=== PATIENT | female | born 1970 | race Caucasian/White ===

== ENCOUNTER → 2017-10-01 | Outpatient (CLI) | payer SELFPAY ==
[~2017-10-01] MED LIST: ADAL40PE; ADAL40PE PO; ADAL40PE SQ; AZAT50TA; AZAT50TA PO; DIAZ10TA3; DIAZ10TA3 PO; ERGO50006; ERGO50006 PO; HYOS-6; HYOS-6 PO; LEVO500T2 PO; LIDO15SO2; LIDO15SO2 MM; METH10TA2; METH10TA2 PO; OXYC-201 PO; OXYC5SOL19; OXYC5SOL19 PO; PANT40TA3; PANT40TA3 PO; PROM25TA14; PROM25TA14 PO; SODI20VI2 IV; [UNRECOGNIZED DRUG - CODE] IV; flexeril PO
[2017-10-01 15:10] LABS: BASOPHILS % (AUTO) 1 % (0-10); EOSINOPHILS # (AUTO) 0.4 10^3/uL (0.0-0.3); EOSINOPHILS % (AUTO) 6 % (0-10); HEMATOCRIT 41 % (35-52); HEMOGLOBIN 13.4 G/DL (11.5-16.0); LYMPHOCYTES # (AUTO) 1.6 X 10^3 (1.0-4.0); LYMPHOCYTES % (AUTO) 23 % (12-44); MEAN CORPUSCULAR HEMOGLOBIN 29 PG (25-34); MEAN CORPUSCULAR HGB CONC 32 G/DL (32-36); MEAN CORPUSCULAR VOLUME 89 FL (80-99); MEAN PLATELET VOLUME 11.1 FL (7.4-10.4); MONOCYTES # (AUTO) 0.7 X 10^3 (0.0-1.0); MONOCYTES % (AUTO) 10 % (0-12); NEUTROPHILS # (AUTO) 4.2 X 10^3 (1.8-7.8); NEUTROPHILS % (AUTO) 60 % (42-75); PLATELET COUNT 207 10^3/uL (130-400); RED BLOOD COUNT 4.63 10^6/uL (4.35-5.85); RED CELL DISTRIBUTION WIDTH 13.6 % (10.0-14.5)
[2017-10-01 15:30] LABS: ALANINE AMINOTRANSFERASE 10 U/L (0-55); ALBUMIN 4.4 GM/DL (3.2-4.5); ALKALINE PHOSPHATASE 78 U/L (40-136); BILIRUBIN,TOTAL 0.4 MG/DL (0.1-1.0); BUN/CREATININE RATIO 16; CALCIUM 9.1 MG/DL (8.5-10.1); CARBON DIOXIDE 24 MMOL/L (21-32); CHLORIDE 103 MMOL/L (98-107); CREATININE SERUM 0.92 MG/DL (0.60-1.30); GFR ESTIMATED > 60; GLUCOSE 95 MG/DL (70-105); POTASSIUM 4.1 MMOL/L (3.6-5.0); SODIUM 137 MMOL/L (135-145); TOTAL PROTEIN 7.4 GM/DL (6.4-8.2)
== END ==
LOC: LAB 14:45
DX: R53.83 Other fatigue (principal); R53.81 Other malaise
CPT/HCPCS: 36415; 80053; 84443; 85025

== ENCOUNTER 2018-04-18 12:19 | Emergency (ER) | payer SELFPAY ==
[~2018-04-18] VITALS: Ht 160 cm; Wt 43.1 kg
[~2018-04-18 12:19] MED LIST changes: -OXYC-201 PO; +OXYC1TAB16 PO
--- OUTSIDE RECORDS SUMMARY | 2018-04-18 12:24 | XMS REPORT | Clinical Summary ---
Author Author [facility] Organization [facility] Address Unknown Phone Unavailable Care Team Providers Care Compensation And Benefits Administrator Name Role Phone Eliana Cornell MD Unavailable Sergio Gaxiola MD PCP Moon Arellano MD Unavailable Deborah Oro RN Unavailable Unavailable eBnito Amato MD Unavailable Shari Posada MD Unavailable Jhoana Garcia RN Unavailable Unavailable Linette Liu RN 2 Unavailable Rajan Alberto RN Unavailable Unavailable Rodger Pineda RN Unavailable Unavailable Davon Zhou MD Unavailable Daniella Campbell RN Unavailable Unavailable Benito Knowles DO Unavailable Rhonda King HR BUSINESS PARTNER CONSULTANT Unavailable Janette Carlson HR BUSINESS PARTNER CONSULTANT-ART SALES CONSULTANT Unavailable Yair Fong MD Unavailable Zulma Wright RN Unavailable Unavailable Tierra Mallory MD Unavailable Shaan Davis MD Unavailable Unavailable Shayy Voss Unavailable Unavailable Carey Segal RN Unavailable Unavailable Cat Hurtado RN Unavailable Unavailable Source Comments Some departments are not documenting in the electronic medical record. If you do not see the information that you expected, contact Release of Information in the Health Information Management department at [phone] for further assistance in locating additional records.[facility] Allergies Comments Active Allergy Reactions Severity Noted Date Methylnaltrexone NAUSEA AND Low 08/16/2014 VOMITING Medications End Date Status Medication Sig Dispensed Refills Start Date Active vitamin A 25,000 unit cap Take 1 Cap by 0 mouth daily. 5 Active promethazine (PHENERGAN) Take 1 Tab by 30 Tab 1 25 mg tablet mouth every 6 5 hours as needed for Nausea or Vomiting. Active other medication Semi-Electric 1 Each 0 Hospital bed. 5 Does not need to be air flow. Active hyoscyamine (ANASPAZ; Place 1 Tab 30 Tab 3 NULEV; SYMAX FASTABS; under tongue 5 HYOMAX-FT; ED-SPAZ; every 4 hours OSCIMIN) 0.125 mg rapid as needed. dissolve tablet Active diazepam (VALIUM) 5 mg Take 0.5 Tabs 30 Tab 0 tablet by mouth 5 every 12 hours as needed. Active pantoprazole DR Take 1 Tab by 90 Tab 3 (PROTONIX) 40 mg tablet mouth twice 5 daily. Active triamcinolone acetonide Apply to 80 g 3 (KENALOG) 0.1 % topical affected area 5 ointment twice daily. Active cyanocobalamin (VITAMIN Inject 1,000 0 B-12, RUBRAMIN) 1,000 mcg to mcg/mL area(s) as injectionIndications: directed added to TPN every 30 days. Indications: added to TPN Active lidocaine-prilocaine Apply to 0 (EMLA) 2.5-2.5 % topical affected area creamIndications: to numb as Needed. the port site weekly Indications: to numb the port site weekly Active azaTHIOprine (IMURAN) 50 TAKE 2 TABS 30 Tab 5 mg tablet BY MOUTH [address]. [address] TAKE 1 TABLET 90 Tab 3 (PROTONIX) 40 mg tablet BY MOUTH 6 DAILY. Active oxyCODONE (ROXICODONE) 1 Take 5 mL by 750 mL 0 mg/mL oral mouth every 6 solutionIndications: Pain 4-6 hours as needed Indications: PAIN Earliest Fill Date: 08/27/15 Active methadone (DOLOPHINE; Take 2 Tabs 180 Tab 0 METHADOSE) 10 mg by mouth 6 tabletIndications: every 8 hours chronic pain Indications: CHRONIC PAIN Earliest Fill Date: 08/27/15 Active adalimumab(+) (HUMIRA Inject 40 mg 2 Each 2 PEN) 40 mg/0.8 mL into area(s) 6 injection pen as directed every 14 days. Active Problems Problem Noted Date Chronic pain 07/19/2014 Pyuria 07/19/2014 DVT (deep venous thrombosis) 07/19/2014 Chronic anticoagulation 07/19/2014 Depression 07/19/2014 Partial small bowel obstruction 07/15/2014 Crohn's disease with fistula 07/15/2014 Colovesical fistula 06/17/2014 C. difficile colitis 06/17/2014 CD (Crohn's disease) 05/05/2014 Diarrhea 05/05/2014 Cachexia 05/05/2014 Malnutrition 05/05/2014 History of bowel resection 05/05/2014 Crohn's disease 05/05/2014 Family History Medical History Relation Name Comments Asthma Daughter Cancer Father Diabetes Type II Mother Relation Name Status Comments Brother Alive Daughter Alive Father Mother Alive Social History Date Tobacco Use Types Packs/Day Years Used Current Every Day Smoker Smokeless Tobacco: Never Used Alcohol Use Drinks/Week oz/Week Comments No 0 Standard 0.0 drinks or equivalent Sex Assigned at Date Recorded Not on file Industry Job Start Date Occupation Not on file Not on file Not on file Travel End Travel History Travel Start No recent travel history available. Last Filed Vital Signs Time Taken Vital Sign Reading 08/11/2015 2:06 PM CDT Blood Pressure 103/54 08/11/2015 2:06 PM CDT Pulse 73 08/11/2015 1:42 PM CDT Temperature 37.1 C (98.8 F) 07/29/2015 10:27 AM CDT Respiratory Rate 14 08/11/2015 2:06 PM CDT Oxygen Saturation 98% - Inhaled Oxygen - Concentration 08/11/2015 11:34 AM CDT Weight 46.9 kg (103 lb 6.4 oz) 08/11/2015 11:34 AM CDT Height 160 cm (5' 2.99") 08/11/2015 11:34 AM CDT Body Mass Index 18.32 Plan of Treatment Health Maintenance Due Date Last Done Comments PHYSICAL (COMPREHENSIVE) 1978 EXAM HIV SCREENING 1986 DTAP/TDAP VACCINES (1 - 1989 Tdap) CERVICAL CANCER SCREENING 2001 BREAST CANCER SCREENING 2011 INFLUENZA VACCINE 10/30/2017 Results Not on filefrom Last 3 Months Insurance Payer Benefit Subscriber ID Type Phone Address Plan / Group [facility] xxxxxxxxxxxx PPO PREF CARE BLUE Advance Directives Patient has advance care planning documents, and code status on file. For more information, please contact: [facility] [address] [place] [address] [place] [address] Date Inactivated Comments Code Status Date Activated 08/26/2014 6:16 PM Full Code 08/09/2014 7:11 PM Provider has discussed Code Status Yes w/Patient or Family? 07/19/2014 5:14 PM Full Code 07/15/2014 11:11 PM Provider has discussed Code Status Yes w/Patient or Family? 07/15/2014 11:11 PM Full Code 07/15/2014 10:01 PM Provider has discussed Code Status Yes w/Patient or Family? 05/31/2014 7:21 PM Full Code 05/05/2014 7:43 PM Provider has discussed Code Status Yes w/Patient or Family?
--- OUTSIDE RECORDS SUMMARY | 2018-04-18 12:27 | XMS REPORT | Continuity of Care Document ---
Author Author [facility] Organization [facility] Address Unknown Phone Unavailable Allergies Active Description Code Type Severity Reaction Onset Reported/Identified Relationship to Patient Clinical Status Yes No Known Drug Allergies [id number] Drug Allergy Unknown N/A 02/28/2015 Medications There is no data. Problems Date Dx Coded Attending Type Code Diagnosis Diagnosed By 06/24/2014 Ot 263.9 06/24/2014 Ot V58.69 07/07/2014 Ot 263.9 07/07/2014 Ot 263.9 07/07/2014 Ot V58.69 07/07/2014 GABRIEL AVALOS, TUBA Ot 263.9 07/07/2014 GABRIEL AVALOS, TUBA Ot V58.69 07/07/2014 GABRIEL AVALOS, TUBA Ot 263.9 07/07/2014 GABRIEL AVALOS, TUBA Ot V58.69 07/07/2014 GABRIEL AVALOS, TUBA Ot 555.9 07/07/2014 GABRIEL AVALOS, TUBA Ot V58.69 07/09/2014 GABRIEL AVALOS, TUBA Ot 263.9 07/09/2014 GABRIEL AVALOS, TUBA Ot V58.69 07/16/2014 GABRIEL AVALOS, TUBA Ot 263.9 07/16/2014 GABRIEL AVALOS, TUBA Ot V58.69 07/16/2014 GABRIEL AVALOS, TUBA Ot 555.9 07/16/2014 GABRIEL AVALOS, TUBA Ot V58.69 08/20/2014 GABRIEL AVALOS, TUBA Ot 263.9 08/20/2014 GABRIEL AVALOS, TUBA Ot 555.9 08/20/2014 GABRIEL AVALOS, TUBA Ot V58.69 08/20/2014 GABRIEL AVALOS, TUBA Ot 263.9 08/20/2014 GABRIEL AVALOS, TUBA Ot 555.9 08/20/2014 GABRIEL AVALOS, TUBA Ot V58.69 08/20/2014 GABRIEL AVALOS, TUBA Ot 263.9 08/20/2014 GABRIEL AVALOS, TUBA Ot 555.9 08/20/2014 GABRIEL AVALOS, TUBA Ot V58.69 08/28/2014 GABRIEL AVALOS, TUBA Ot 263.9 08/28/2014 GABRIEL AVALOS, TUBA Ot 555.9 08/28/2014 GABRIEL AVALOS, TUBA Ot V58.69 09/14/2014 GABRIEL AVALOS, TUBA Ot 263.9 PROTEIN-SAMMIE MALNUTR NOS 09/14/2014 GABRIEL AVALOS, TUBA Ot V58.69 [facility],,CURRENT USE 09/15/2014 GABRIEL AVALOS, TUBA Ot 263.9 09/15/2014 GABRIEL AVALOS, TUBA Ot 555.9 09/15/2014 GABRIEL AVALOS, TUBA Ot V58.69 09/21/2014 GABRIEL AVALOS, TUBA Ot 263.9 09/21/2014 GABRIEL AVALOS, TUBA Ot 555.9 09/21/2014 GABRIEL AVALOS, TUBA Ot V58.69 09/21/2014 GABRIEL AVALOS, TUBA Ot V58.83 09/24/2014 GABRIEL AVALOS, TUBA Ot 263.9 09/24/2014 GABRIEL AVALOS, TUBA Ot 555.9 09/24/2014 GABRIEL AVALOS, TUBA Ot 263.9 09/24/2014 GABRIEL AVALOS, TUBA Ot 555.9 10/06/2014 GABRIEL AVALOS, TUBA Ot 263.9 10/06/2014 GABRIEL AVALOS, TUBA Ot 555.9 10/07/2014 GABRIEL AVALOS, TUBA Ot 263.9 10/07/2014 GABRIEL AVALOS, TUBA Ot 555.9 10/07/2014 GABRIEL AVALOS, TUBA Ot V58.69 10/15/2014 GABRIEL AVALOS, TUBA Ot 263.9 10/15/2014 GABRIEL AVALOS, TUBA Ot 555.9 10/15/2014 GABRIEL AVALOS, TUBA Ot V58.69 10/21/2014 GABRIEL AVALOS, TUBA Ot 263.9 10/21/2014 GABRIEL AVALOS, TUBA Ot 555.9 10/21/2014 GABRIEL AVALOS, TUBA Ot V58.69 10/21/2014 GABRIEL AVALOS, TUBA Ot V58.83 10/28/2014 GABRIEL AVALOS, TUBA Ot 263.9 10/28/2014 GABRIEL AVALOS, TUBA Ot 555.9 10/28/2014 GABRIEL AVALOS, TUBA Ot V58.69 10/28/2014 GABRIEL AVALOS, TUBA Ot V58.83 11/18/2014 GABRIEL AVALOS, TUBA Ot 263.9 11/18/2014 GABRIEL AVALOS, TUBA Ot 555.9 11/18/2014 GABRIEL AVALOS, TUBA Ot V58.69 11/18/2014 GABRIEL AVALOS, TUBA Ot 263.9 11/18/2014 GABRIEL AVALOS, TUBA Ot 555.9 11/18/2014 GABRIEL AVALOS, TUBA Ot V58.69 11/18/2014 GABRIEL AVALOS, TUBA Ot V58.83 11/18/2014 GABRIEL AVALOS, TUBA Ot 263.9 11/18/2014 GABRIEL AVALOS, TUBA Ot 555.9 11/18/2014 GABRIEL AVALOS, TUBA Ot V58.69 11/23/2014 GABRIEL AVALOS, TUBA Ot 263.9 11/23/2014 GABRIEL AVALOS, TUBA Ot 555.9 11/23/2014 GABRIEL AVALOS, TUBA Ot V58.69 11/26/2014 GABRIEL AVALOS, TUBA Ot 263.9 11/26/2014 GABRIEL AVALOS, TUBA Ot 555.9 11/26/2014 GABRIEL AVALOS, TUBA Ot V58.69 12/02/2014 GABRIEL AVALOS, TUBA Ot 263.9 12/02/2014 GABRIEL AVALOS, TUBA Ot 555.9 12/02/2014 GABRIEL AVALOS, TUBA Ot V58.69 12/09/2014 GABRIEL AVALOS, TUBA Ot 263.9 12/09/2014 GABRIEL AVALOS, TUBA Ot 555.9 12/09/2014 GABRIEL AVALOS, TUBA Ot V58.69 12/21/2014 GABRIEL AVALOS, TUBA Ot 263.9 12/21/2014 GABRIEL AVALOS, TUBA Ot 555.9 12/21/2014 GABRIEL AVALOS, TUBA Ot V58.69 12/23/2014 GABRIEL AVALOS, TUBA Ot 263.9 12/23/2014 GABRIEL AVALOS, TUBA Ot 555.9 12/23/2014 GABRIEL AVALOS, TUBA Ot V58.69 12/23/2014 GABRIEL AVALOS, TUBA Ot 263.9 12/23/2014 GABRIEL AVALOS, TUBA Ot 555.9 12/23/2014 GABRIEL AVALOS, TUBA Ot V58.69 12/29/2014 GABRIEL AVALOS, TUBA Ot 263.9 12/29/2014 GABRIEL AVALOS, TUBA Ot 555.9 12/29/2014 GABRIEL AVALOS, TUBA Ot V58.69 12/31/2014 GABRIEL AVALOS, TUBA Ot 263.9 12/31/2014 GABRIEL AVALOS, TUBA Ot 555.9 12/31/2014 GABRIEL AVALOS, TUBA Ot V58.69 01/13/2015 GABRIEL AVALOS, TUBA Ot 263.9 01/13/2015 GABRIEL AVALOS, TUBA Ot 555.9 01/13/2015 GABRIEL AVALOS, TUBA Ot V58.69 01/24/2015 GABRIEL AVALOS, TUBA Ot E46 01/24/2015 GABRIEL AVALOS, TUBA Ot K50.90 01/24/2015 GABRIEL AVALOS, TUBA Ot Z79.899 02/01/2015 GABRIEL AVALOS, TUBA Ot E46 02/01/2015 GABRIEL AVALOS, TUBA Ot K50.90 02/01/2015 GABRIEL AVALOS, TUBA Ot Z79.899 02/01/2015 GABRIEL AVALOS, TUBA Ot E46 02/01/2015 GABRIEL AVALOS, TUBA Ot K50.90 02/01/2015 GABRIEL AVALOS, TUBA Ot Z79.899 02/10/2015 GABRIEL AVALOS, TUBA Ot E46 02/10/2015 GABRIEL AVALOS, TUBA Ot K50.90 02/10/2015 GABRIEL AVALOS, TUBA Ot Z79.899 02/16/2015 Ot 263.9 02/16/2015 Ot 263.9 02/16/2015 Ot V58.69 02/16/2015 GABRIEL AVALOS, TUBA Ot 263.9 02/16/2015 GABRIEL AVALOS, TUBA Ot V58.69 02/16/2015 GABRIEL AVALOS, TUBA Ot 555.9 02/16/2015 GABRIEL AVALOS, TUBA Ot V58.69 02/16/2015 GABRIEL AVALOS, TUBA Ot 263.9 02/16/2015 GABRIEL AVALOS, TUBA Ot 555.9 02/16/2015 GABRIEL AVALOS, TUBA Ot V58.69 02/16/2015 GABRIEL AVALOS, TUBA Ot 263.9 02/16/2015 GABRIEL AVALOS, TUBA Ot 555.9 02/16/2015 GABRIEL AVALOS, TUBA Ot V58.69 02/16/2015 GABRIEL AVALOS, TUBA Ot 263.9 02/16/2015 GABRIEL AVALOS, TUBA Ot 555.9 02/16/2015 GABRIEL AVALOS, TUBA Ot V58.69 02/16/2015 GABRIEL AVALOS, TUBA Ot 263.9 02/16/2015 GABRIEL AVALOS, TUBA Ot 555.9 02/16/2015 GABRIEL AVALOS, TUBA Ot V58.69 02/16/2015 GABRIEL AVALOS, TUBA Ot 263.9 02/16/2015 GABRIEL AVALOS, TUBA Ot 555.9 02/16/2015 GABRIEL AVALOS, TUBA Ot V58.69 02/16/2015 GABRIEL AVALOS, TUBA Ot 263.9 02/16/2015 GABRIEL AVALOS, TUBA Ot 555.9 02/16/2015 GABRIEL AVALOS, TUBA Ot V58.69 02/16/2015 GABRIEL AVALOS, TUBA Ot V58.83 02/16/2015 GABRIEL AVALOS, TUBA Ot 263.9 02/16/2015 GABRIEL AVALOS, TUBA Ot 555.9 02/16/2015 GABRIEL AVALOS, TUBA Ot 263.9 02/16/2015 GABRIEL AVALOS, TUBA Ot 555.9 02/16/2015 GABRIEL AVALOS, TUBA Ot 263.9 02/16/2015 GABRIEL AVALOS, TUBA Ot V58.69 02/16/2015 GABRIEL AVALOS, TUBA Ot 263.9 02/16/2015 GABRIEL AVALOS, TUBA Ot 555.9 02/16/2015 GABRIEL AVALOS, TUBA Ot V58.69 02/16/2015 GABRIEL AVALOS, TUBA Ot 263.9 02/16/2015 GARBIEL AVALOS, TUBA Ot 555.9 02/16/2015 GABRIEL AVALOS, TUBA Ot V58.69 02/16/2015 GABRIEL AVALOS, TUBA Ot 263.9 02/16/2015 GABRIEL AVALOS, TUBA Ot 555.9 02/16/2015 GABRIEL AVALOS, TUBA Ot V58.69 02/16/2015 GABRIEL AVALOS, TUBA Ot V58.83 02/16/2015 GABRIEL AVALOS, TUBA Ot 263.9 02/16/2015 GABRIEL AVALOS, TUBA Ot 555.9 02/16/2015 GABRIEL AVALOS, TUBA Ot V58.69 02/16/2015 GABRIEL AVALOS, TUBA Ot V58.83 02/16/2015 GABRIEL AVALOS, TUBA Ot 263.9 02/16/2015 GABRIEL AVALOS, TUBA Ot 555.9 02/16/2015 GABRIEL AVALOS, TUBA Ot V58.69 02/16/2015 GABRIEL AVALOS, TUBA Ot 263.9 02/16/2015 GABRIEL AVALOS, TUBA Ot 555.9 02/16/2015 GABRIEL AVALOS, TUBA Ot V58.69 02/16/2015 GABRIEL AVALOS, TUBA Ot V58.83 02/16/2015 GABRIEL AVALOS, TUBA Ot 263.9 02/16/2015 GABRIEL AVALOS, TUBA Ot 555.9 02/16/2015 GABRIEL AVALOS, TUBA Ot V58.69 02/16/2015 GABRIEL AVALOS, TUBA Ot 263.9 02/16/2015 GABRIEL AVALOS, TUBA Ot 555.9 02/16/2015 GABRIEL AVALOS, TUBA Ot V58.69 02/16/2015 GABRIEL AVALOS, TUBA Ot 263.9 02/16/2015 GABRIEL AVALOS, TUBA Ot 555.9 02/16/2015 GABRIEL AVALOS, TUBA Ot V58.69 02/16/2015 GABRIEL AVALOS, TUBA Ot 263.9 02/16/2015 GABRIEL AVALOS, TUBA Ot 555.9 02/16/2015 GABRIEL AVALOS, TUBA Ot V58.69 02/16/2015 GABRIEL AVALOS, TUBA Ot 263.9 02/16/2015 GABRIEL AVALOS, TUBA Ot 555.9 02/16/2015 GABRIEL AVALOS, TUBA Ot V58.69 02/16/2015 GABRIEL AVALOS, TUBA Ot 263.9 02/16/2015 GABRIEL AVALOS, TUBA Ot 555.9 02/16/2015 GABRIEL AVALOS, TUBA Ot V58.69 02/16/2015 GABRIEL AVALOS, TUBA Ot 263.9 02/16/2015 GABRIEL AVALOS, TUBA Ot 555.9 02/16/2015 GABRIEL AVALOS, TUBA Ot V58.69 02/16/2015 GABRIEL AVALOS, TUBA Ot 263.9 02/16/2015 GABRIEL AVALOS, TUBA Ot 555.9 02/16/2015 GABRIEL AVALOS, TUBA Ot V58.69 02/16/2015 GABRIEL AVALOS, TUBA Ot 263.9 02/16/2015 GABRIEL AVALOS, TUBA Ot 555.9 02/16/2015 GABRIEL AVALOS, TUBA Ot V58.69 02/16/2015 GABRIEL AVALOS, TUBA Ot E46 02/16/2015 GABRIEL AVALOS, TUBA Ot K50.90 02/16/2015 GABRIEL AVALOS, TUBA Ot Z79.899 02/16/2015 GABRIEL AVALOS, TUBA Ot E46 02/16/2015 GABRIEL AVALOS, TUBA Ot K50.90 02/16/2015 GABRIEL AVALOS, TUBA Ot Z79.899 02/16/2015 GABRIEL AVALOS, TUBA Ot E46 02/16/2015 GABRIEL AVALOS, TUBA Ot K50.90 02/16/2015 GABRIEL AVALOS, TUBA Ot Z79.899 02/16/2015 GABRIEL AVALOS, TUBA Ot E46 02/16/2015 GABRIEL AVALOS, TUBA Ot K50.90 02/16/2015 GABRIEL AVALOS, TUBA Ot Z79.899 02/16/2015 GABRIEL AVALOS, TUBA Ot E46 02/16/2015 GABRIEL AVALOS, TUBA Ot K50.90 02/16/2015 GABRIEL AVALOS, TUBA Ot Z79.899 02/16/2015 GABRIEL AVALOS, TUBA Ot E46 02/16/2015 GABRIEL AVALOS, TUBA Ot K50.90 02/16/2015 GABRIEL AVALOS, TUBA Ot Z79.899 02/16/2015 GABRIEL AVALOS, TUBA Ot E46 02/16/2015 GABRIEL AVALSO, TUBA Ot K50.90 02/16/2015 GABRIEL AVALOS, TUBA Ot Z79.899 02/28/2015 GABRIEL AVALOS, TUBA Ot 263.9 02/28/2015 GABRIEL AVALOS, TUBA Ot V58.69 03/01/2015 LUDIN AVALOS, IESHA D Ot A49.01 03/01/2015 LUDIN AVALOS, IESHA D Ot F17.210 03/01/2015 LUDIN AVALOS, IESHA D Ot K50.90 03/01/2015 LUDIN AVALOS, IESHA D Ot K91.2 03/01/2015 LUDIN AVALOS, IESHA D Ot N32.1 03/01/2015 LUDIN AVALOS, IESHA D Ot R78.81 03/01/2015 LUDIN AVALOS, IESHA D Ot A49.01 03/01/2015 LUDIN AVALOS, IESHA D Ot F17.210 03/01/2015 LUDIN AVALOS, IESHA D Ot K50.90 03/01/2015 LUDIN AVALOS, IESHA D Ot K91.2 03/01/2015 LUDIN AVALOS, IESHA D Ot N32.1 03/01/2015 LUDIN AVALOS, IESHA Linda Ot R78.81 03/02/2015 GABRIEL AVALOS, TUBA Ot E46 03/02/2015 GABRIEL AVALOS, TUBA Ot K50.90 03/02/2015 GABRIEL AVALOS, TUBA Ot Z79.899 03/03/2015 LUDIN AVALOS, IESHA Mckeon Ot A49.01 03/03/2015 LUDIN AVALOS, IESHA Linda Ot F17.210 03/03/2015 LUDIN AVALOS, IESHA Linda Ot K50.90 03/03/2015 LUDIN AVALOS, IESHA Mckeon Ot K91.2 03/03/2015 LUDIN AVALOS, IESHA Mckeon Ot N32.1 03/03/2015 LUDIN AVALOS, IESHA Mckeon Ot R78.81 03/03/2015 LUDIN AVALOS, IESHA Mckeon Ot A41.2 SEPSIS DUE TO UNSPECIFIED STAPHYLOCOCCUS 03/03/2015 LUDIN AVALOS, IESHA Mckeon Ot F17.210 NICOTINE DEPENDENCE, CIGARETTES, UNCOMPL 03/03/2015 LUDIN AVALOS, IESHA Mckeon Ot J44.9 CHRONIC OBSTRUCTIVE PULMONARY DISEASE, U 03/03/2015 LUDIN AVALOS, IESHA Mckeon Ot K50.90 CROHN'S DISEASE, UNSPECIFIED, WITHOUT CO 03/03/2015 LUDIN AVALOS, IESHA Mckeon Ot K91.2 POSTSURGICAL MALABSORPTION, NOT ELSEWHER 03/03/2015 LUDIN AVALOS, IESHA Mckeon Ot N32.1 VESICOINTESTINAL FISTULA 03/03/2015 LUDIN AVALOS, IESHA Mckeon Ot T80.211A BLOODSTREAM INFECTION DUE TO CENTRAL STEPHANIE 03/04/2015 GABRIEL AVALOS, TUBA Ot E46 03/04/2015 GABRIEL AVALOS, TUBA Ot K50.90 03/04/2015 GABRIEL AVALOS, TUBA Ot Z79.899 03/09/2015 GABRIEL AVALOS, TUBA Ot E46 03/09/2015 GABRIEL AVALOS, TUBA Ot K50.90 03/09/2015 GABRIEL AVALOS, TUBA Ot Z79.899 03/11/2015 ALEX AVALOS, MAURICIO Coley Ot 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 03/11/2015 ALEX AVALOS, MAURICIO Coley Ot K91.2 POSTSURGICAL MALABSORPTION, NOT ELSEWHER 03/23/2015 GABRIEL AVALOS, TUBA Ot R30.0 03/23/2015 GABRIEL AVALOS, TUBA Ot R50.9 03/23/2015 GABRIEL AVALOS, TUBA Ot E46 03/23/2015 GABRIEL AVALOS, TUBA Ot K50.90 03/23/2015 GABRIEL AVALOS, TUBA Ot Z79.899 04/05/2015 LUDIN AVALOS, IESHA D Ot E46 04/05/2015 LUDIN AVALOS, IESHA D Ot K50.90 04/05/2015 GABRIEL AVALOS, TUBA Ot E46 04/05/2015 GABRIEL AVALOS, TUBA Ot K50.90 04/13/2015 GABRIEL AVALOS, TUBA Ot E46 04/13/2015 GABRIEL AVALOS, TUBA Ot K50.90 04/13/2015 GABRIEL AVALOS, TUBA Ot Z79.899 04/20/2015 GABRIEL AVALOS, TUBA Ot E46 04/20/2015 GABRIEL AVALOS, TUBA Ot K50.90 04/20/2015 GABRIEL AVALOS, TUBA Ot Z79.899 04/29/2015 GABRIEL AVALOS, TUBA Ot E46 04/29/2015 GABRIEL AVALOS, TUBA Ot K50.90 04/29/2015 GABRIEL AVALOS, TUBA Ot Z79.899 04/29/2015 GABRIEL AVALOS, TUBA Ot E46 04/29/2015 GABRIEL AVALOS, TUBA Ot K50.90 04/29/2015 GABRIEL AVALOS, TUBA Ot Z79.899 05/12/2015 GABRIEL AVALOS, TUBA Ot E46 05/12/2015 GABRIEL AVALOS, TUBA Ot K50.90 05/12/2015 GABRIEL AVALOS, TUBA Ot Z79.899 05/19/2015 GABRIEL AVALOS, TUBA Ot E46 05/19/2015 GABRIEL AVALOS, TUBA Ot K50.90 05/19/2015 GABRIEL AVALOS, TUBA Ot Z79.899 05/19/2015 JULIO C RALPH APRN Ot F17.210 NICOTINE DEPENDENCE, CIGARETTES, UNCOMPL 05/19/2015 JULIO C RALPH APRN Ot S29.011A STRAIN OF MUSCLE AND TENDON OF FRONT WAL 05/19/2015 JULIO C RALPH ALARM SIGNALER Ot X58.XXXA EXPOSURE TO OTHER SPECIFIED FACTORS, INI 05/19/2015 JULIO C RALPH ALARM SIGNALER Ot Y99.8 OTHER EXTERNAL CAUSE STATUS 05/19/2015 JULIO C RALPH ALARM SIGNALER Ot Z86.718 PERSONAL HISTORY OF OTHER VENOUS THROMBO 05/30/2015 GABRIEL AVALOS, TUBA Ot E46 05/30/2015 GABRIEL AVALOS, TUBA Ot K50.90 05/30/2015 GABRIEL AVALOS, TUBA Ot Z79.899 06/06/2015 GABRIEL AVALOS, TUBA Ot E46 06/06/2015 GABRIEL AVALOS, TUBA Ot K50.90 06/06/2015 GABRIEL AVALOS, TUBA Ot Z79.899 06/09/2015 GABRIEL AVALOS, TUBA Ot E46 06/09/2015 GABRIEL AVALOS, TUBA Ot K50.90 06/09/2015 GABRIEL AVALOS, TUBA Ot Z79.899 06/16/2015 GABRIEL AVALOS, TUBA Ot E46 06/16/2015 GABRIEL AVALOS, TUBA Ot K50.90 06/16/2015 GABRIEL AVALOS, TUBA Ot Z79.899 06/21/2015 GABRIEL AVALOS, TUBA Ot E46 06/21/2015 GABRIEL AVALOS, TUBA Ot K50.90 06/21/2015 GABRIEL AVALOS, TUBA Ot Z79.899 06/23/2015 GABRIEL AVALOS, TUBA Ot E46 06/23/2015 GABRIEL AVALOS, TUBA Ot K50.90 06/23/2015 GABRIEL AVALOS, TUBA Ot Z79.899 06/27/2015 GABRIEL AVALOS, TUBA Ot E46 06/27/2015 GABRIEL AVALOS, TUBA Ot K50.90 06/27/2015 GABRIEL AVALOS, TUBA Ot Z79.899 06/29/2015 Ot 263.9 06/29/2015 Ot 263.9 06/29/2015 Ot V58.69 06/29/2015 GABRIEL AVALOS, TUBA Ot 263.9 06/29/2015 GABRIEL AVALOS, TUBA Ot V58.69 06/29/2015 GABRIEL AVALOS, TUBA Ot 555.9 06/29/2015 GABRIEL AVALOS, TUBA Ot V58.69 06/29/2015 GABRIEL AVALOS, TUBA Ot 263.9 06/29/2015 GABRIEL AVALOS, TUBA Ot 555.9 06/29/2015 GABRIEL AVALOS, TUBA Ot V58.69 06/29/2015 GABRIEL AVALOS, TUBA Ot 263.9 06/29/2015 GABRIEL AVALOS, TUBA Ot 555.9 06/29/2015 GABRIEL AVALOS, TUBA Ot V58.69 06/29/2015 GABRIEL AVALOS, TUBA Ot 263.9 06/29/2015 GABRIEL AVALOS, TUBA Ot 555.9 06/29/2015 GABRIEL AVALOS, TUBA Ot V58.69 06/29/2015 GABRIEL AVALOS, TUBA Ot 263.9 06/29/2015 GABRIEL AVALOS, TUBA Ot 555.9 06/29/2015 GABRIEL AVALOS, TUBA Ot V58.69 06/29/2015 GABRIEL AVALOS, TUBA Ot 263.9 06/29/2015 GABRIEL AVALOS, TUBA Ot 555.9 06/29/2015 GABRIEL AVALOS, TUBA Ot V58.69 06/29/2015 GABRIEL AVALOS, TUBA Ot 263.9 06/29/2015 GABRIEL AVALOS, TUBA Ot 555.9 06/29/2015 GABRIEL AVALOS, TUBA Ot V58.69 06/29/2015 GABRIEL AVALOS, TUBA Ot V58.83 06/29/2015 GABRIEL AVALOS, TUBA Ot 263.9 06/29/2015 GABRIEL AVALOS, TUBA Ot 555.9 06/29/2015 GABRIEL AVALOS, TUBA Ot 263.9 06/29/2015 GABRIEL AVALOS, TUBA Ot 555.9 06/29/2015 GABRIEL AVALOS, TUBA Ot 263.9 06/29/2015 GABRIEL AVALOS, TUBA Ot V58.69 06/29/2015 GABRIEL AVALOS, TUBA Ot 263.9 06/29/2015 GABRIEL AVALOS, TUBA Ot 555.9 06/29/2015 GABRIEL AVALOS, TUBA Ot V58.69 06/29/2015 GABRIEL AVALOS, TUBA Ot 263.9 06/29/2015 GABRIEL AVALOS, TUBA Ot 555.9 06/29/2015 GABRIEL AVALOS, TUBA Ot V58.69 06/29/2015 GABRIEL AVALOS, TUBA Ot 263.9 06/29/2015 GABRIEL AVALOS, TUBA Ot 555.9 06/29/2015 GABRIEL AVALOS, TUBA Ot V58.69 06/29/2015 GABRIEL AVALOS, TUBA Ot V58.83 06/29/2015 GABRIEL AVALOS, TUBA Ot 263.9 06/29/2015 GABRIEL AVALOS, TUBA Ot 555.9 06/29/2015 GABRIEL AVALOS, TUBA Ot V58.69 06/29/2015 GABRIEL AVALOS, TUBA Ot V58.83 06/29/2015 GABRIEL AVALOS, TUBA Ot 263.9 06/29/2015 GABRIEL AVALOS, TUBA Ot 555.9 06/29/2015 GABRIEL AVALOS, TUBA Ot V58.69 06/29/2015 GABRIEL AVALOS, TUBA Ot 263.9 06/29/2015 GABRIEL AVALOS, TUBA Ot 555.9 06/29/2015 GABRIEL AVALOS, TUBA Ot V58.69 06/29/2015 GABRIEL AVALOS, TUBA Ot V58.83 06/29/2015 GABRIEL AVALOS, TUBA Ot 263.9 06/29/2015 GABREIL AVALOS, TUBA Ot 555.9 06/29/2015 GABRIEL AVALOS, TUBA Ot V58.69 06/29/2015 GABRIEL AVALOS, TUBA Ot 263.9 06/29/2015 GABRIEL AVALOS, TUBA Ot 555.9 06/29/2015 GABRIEL AVALOS, TUBA Ot V58.69 06/29/2015 GABRIEL AVALOS, TUBA Ot 263.9 06/29/2015 GABRIEL AVALOS, TUBA Ot 555.9 06/29/2015 GABRIEL AVALOS, TUBA Ot V58.69 06/29/2015 GABRIEL AVALOS, TUBA Ot 263.9 06/29/2015 GABRIEL AVALOS, TUBA Ot 555.9 06/29/2015 GABRIEL AVALOS, TUBA Ot V58.69 06/29/2015 GABRIEL AVALOS, TUBA Ot 263.9 06/29/2015 GABRIEL AVALOS, TUBA Ot 555.9 06/29/2015 GABRIEL AVALOS, TUBA Ot V58.69 06/29/2015 GABRIEL AVALOS, TUBA Ot 263.9 06/29/2015 GABRIEL AVALOS, TUBA Ot 555.9 06/29/2015 GABRIEL AVALOS, TUBA Ot V58.69 06/29/2015 GABRIEL AVALOS, TUBA Ot 263.9 06/29/2015 GABRIEL AVALOS, TUBA Ot 555.9 06/29/2015 GABRIEL AVALOS, TUBA Ot V58.69 06/29/2015 GABRIEL AVALOS, TUBA Ot 263.9 06/29/2015 GABRIEL AVALOS, TUBA Ot 555.9 06/29/2015 GABRIEL AVALOS, TUBA Ot V58.69 06/29/2015 GABRIEL AVALOS, TUBA Ot 263.9 06/29/2015 GABRIEL AVALOS, TUBA Ot 555.9 06/29/2015 GABRIEL AVALOS, TUBA Ot V58.69 06/29/2015 GABRIEL AVALOS, TUBA Ot E46 06/29/2015 GABRIEL AVALOS, TUBA Ot K50.90 06/29/2015 GABRIEL AVALOS, TUBA Ot Z79.899 06/29/2015 GABRIEL AVALOS, TUBA Ot E46 06/29/2015 GABRIEL AVALOS, TUBA Ot K50.90 06/29/2015 GABRIEL AVALOS, TUBA Ot Z79.899 06/29/2015 GABRIEL AVALOS, TUBA Ot E46 06/29/2015 GABRIEL AVALOS, TUBA Ot K50.90 06/29/2015 GABRIEL AVALOS, TUBA Ot Z79.899 06/29/2015 GABRIEL AVALOS, TUBA Ot E46 06/29/2015 GABRIEL AVALOS, TUBA Ot K50.90 06/29/2015 GABRIEL AVALOS, TUBA Ot Z79.899 06/29/2015 GABRIEL AVALOS, TUBA Ot E46 06/29/2015 GABRIEL AVALOS, TUBA Ot K50.90 06/29/2015 GABRIEL AVALOS, TUBA Ot Z79.899 06/29/2015 GABRIEL AVALOS, TUBA Ot E46 06/29/2015 GABRIEL AVALOS, TUBA Ot K50.90 06/29/2015 GABRIEL AVALOS, TUBA Ot Z79.899 06/29/2015 GABRIEL AVALOS, TUBA Ot E46 06/29/2015 GABRIEL AVALOS, TUBA Ot K50.90 06/29/2015 GABRIEL AVALOS, TUBA Ot Z79.899 06/29/2015 GABRIEL AVALOS, TUBA Ot E46 06/29/2015 GABRIEL AVALOS, TUBA Ot K50.90 06/29/2015 GABRIEL AVALOS, TUBA Ot Z79.899 06/29/2015 GABRIEL AVALOS, TUBA Ot R30.0 06/29/2015 GABRIEL AVALOS, TUBA Ot R50.9 06/29/2015 ALEX AVALOS, MAURICIO M Ot K50.90 06/29/2015 ALEX AVALOS, MAURICIO M Ot K91.2 06/29/2015 ALEX AVALOS, MAURICIO M Ot Z01.818 06/29/2015 GABRIEL AVALOS, TUBA Ot E46 06/29/2015 GABRIEL AVALOS, TUBA Ot K50.90 06/29/2015 GABRIEL AVALOS, TUBA Ot Z79.899 06/29/2015 LUDIN AVALOS, IESHA D Ot E46 06/29/2015 LUDIN AVALOS, IESHA D Ot K50.90 06/29/2015 GABRIEL AVALOS, TUBA Ot E46 06/29/2015 GARBIEL AVALOS, TUBA Ot K50.90 06/29/2015 GABRIEL AVALOS, TUBA Ot E46 06/29/2015 GABRIEL AVALOS, TUBA Ot K50.90 06/29/2015 GABRIEL AVALOS, TUBA Ot Z79.899 06/29/2015 GABRIEL AVALOS, TUBA Ot E46 06/29/2015 GABRIEL AVALOS, TUBA Ot K50.90 06/29/2015 GABRIEL AVALOS, TUBA Ot Z79.899 06/29/2015 GABRIEL AVALOS, TUBA Ot E46 06/29/2015 GABRIEL AVALOS, TUBA Ot K50.90 06/29/2015 GABRIEL AVALOS, TUBA Ot Z79.899 06/29/2015 GABRIEL AVALOS, TUBA Ot E46 06/29/2015 GABRIEL AVALOS, TUBA Ot K50.90 06/29/2015 GABRIEL AVALOS, TUBA Ot Z79.899 06/29/2015 GABRIEL AVALOS, TUBA Ot E46 06/29/2015 GABRIEL AVALOS, TUBA Ot K50.90 06/29/2015 GABRIEL AVALOS, TUBA Ot Z79.899 06/29/2015 GABRIEL AVALOS, TUBA Ot E46 06/29/2015 GABRIEL AVALOS, TUBA Ot K50.90 06/29/2015 GABRIEL AVALOS, TUBA Ot Z79.899 06/29/2015 GABRIEL AVALOS, TUBA Ot E46 06/29/2015 GABRIEL AVALOS, TUBA Ot K50.90 06/29/2015 GABRIEL AVALOS, TUBA Ot Z79.899 06/29/2015 GABRIEL AVALOS, TUBA Ot E46 06/29/2015 GABRIEL AVALOS, TUBA Ot K50.90 06/29/2015 GABRIEL AVALOS, TUBA Ot Z79.899 06/29/2015 GABRIEL AVALOS, TUBA Ot E46 06/29/2015 GABRIEL AVALOS, TUBA Ot K50.90 06/29/2015 GABRIEL AVALOS, TUBA Ot Z79.899 06/29/2015 GABRIEL AVALOS, TUBA Ot E46 06/29/2015 GABRIEL AVALOS, TUBA Ot K50.90 06/29/2015 GABRIEL AVALOS, TUBA Ot Z79.899 06/29/2015 GABRIEL AVALOS, TUBA Ot E46 06/29/2015 GABRIEL AVALOS, TUBA Ot K50.90 06/29/2015 GABRIEL AVALOS, TUBA Ot Z79.899 06/29/2015 GABRIEL AVALOS, TUBA Ot E46 06/29/2015 GABRIEL AVALOS, TUBA Ot K50.90 06/29/2015 GABRIEL AVALOS, TUBA Ot Z79.899 06/29/2015 GABRIEL AVALOS, TUBA Ot E46 06/29/2015 GABRIEL AVALOS, TUBA Ot K50.90 06/29/2015 GABRIEL AVALOS, TUBA Ot Z79.899 06/29/2015 GABRIEL AVALOS, TUBA Ot E46 06/29/2015 GABRIEL AVALOS, TUBA Ot K50.90 06/29/2015 GABRIEL AVALOS, TUBA Ot Z79.899 06/29/2015 GABRIEL AVALOS, TUBA Ot E46 06/29/2015 GABRIEL AVALOS, TUBA Ot K50.90 06/29/2015 GABRIEL AVALOS, TUBA Ot Z79.899 07/05/2015 GABRIEL AVALOS, TUBA Ot E46 07/05/2015 GABRIEL AVALOS, TUBA Ot K50.90 07/05/2015 GABRIEL AVALOS, TUBA Ot Z79.899 07/07/2015 GABRIEL AVALOS, TUBA Ot E46 07/07/2015 GABRIEL AVALOS, TUBA Ot K50.90 07/07/2015 GABRIEL AVALOS, TUBA Ot Z79.899 07/13/2015 Ot 263.9 07/13/2015 Ot 263.9 07/13/2015 Ot V58.69 07/13/2015 GABRIEL AVALOS, TUBA Ot 263.9 07/13/2015 GABRIEL AVALOS, TUBA Ot V58.69 07/13/2015 GABRIEL AVALOS, TUBA Ot 555.9 07/13/2015 GABRIEL AVALOS, TUBA Ot V58.69 07/13/2015 GABRIEL AVALOS, TUBA Ot 263.9 07/13/2015 GABRIEL AVALOS, TUBA Ot 555.9 07/13/2015 GABRIEL AVALOS, TUBA Ot V58.69 07/13/2015 GABRIEL AVALOS, TUBA Ot 263.9 07/13/2015 GABRIEL AVALOS, TUBA Ot 555.9 07/13/2015 GABRIEL AVALOS, TUBA Ot V58.69 07/13/2015 GABRIEL AVALOS, TUBA Ot 263.9 07/13/2015 GABRIEL AVALOS, TUBA Ot 555.9 07/13/2015 GABRIEL AVALOS, TUBA Ot V58.69 07/13/2015 GABRIEL AVALOS, TUBA Ot 263.9 07/13/2015 GABRIEL AVALOS, TUBA Ot 555.9 07/13/2015 GABRIEL AVALOS, TUBA Ot V58.69 07/13/2015 GABRIEL AVALOS, TUBA Ot 263.9 07/13/2015 GABRIEL AVALOS, TUBA Ot 555.9 07/13/2015 GABRIEL AVALOS, TUBA Ot V58.69 07/13/2015 GABRIEL AVALOS, TUBA Ot 263.9 07/13/2015 GABRIEL AVALOS, TUBA Ot 555.9 07/13/2015 GABRIEL AVALOS, TUBA Ot V58.69 07/13/2015 GABRIEL AVALOS, TUBA Ot V58.83 07/13/2015 GABRIEL AVALOS, TUBA Ot 263.9 07/13/2015 GABRIEL AVALOS, TUBA Ot 555.9 07/13/2015 GABRIEL AVALOS, TUBA Ot 263.9 07/13/2015 GABRIEL AVALOS, TUBA Ot 555.9 07/13/2015 GABRIEL AVALOS, TUBA Ot 263.9 07/13/2015 GABRIEL AVALOS, TUBA Ot V58.69 07/13/2015 GABRIEL AVALOS, TUBA Ot 263.9 07/13/2015 GABRIEL AVALOS, TUBA Ot 555.9 07/13/2015 GABRIEL AVALOS, TUBA Ot V58.69 07/13/2015 GABRIEL AVALOS, TUBA Ot 263.9 07/13/2015 GABRIEL AVALOS, TUBA Ot 555.9 07/13/2015 GABRIEL AVALOS, TUBA Ot V58.69 07/13/2015 GABRIEL AVALOS, TUBA Ot 263.9 07/13/2015 GABRIEL AVALOS, TUBA Ot 555.9 07/13/2015 GABRIEL AVALOS, TUBA Ot V58.69 07/13/2015 GABRIEL AVALOS, TUBA Ot V58.83 07/13/2015 GABRIEL AVALOS, TUBA Ot 263.9 07/13/2015 GABRIEL AVALOS, TUBA Ot 555.9 07/13/2015 GABRIEL AVALOS, TUBA Ot V58.69 07/13/2015 GABRIEL AVALOS, TUBA Ot V58.83 07/13/2015 GABRIEL AVALOS, TUBA Ot 263.9 07/13/2015 GABRIEL AVALOS, TUBA Ot 555.9 07/13/2015 GABRIEL AVALOS, TUBA Ot V58.69 07/13/2015 GABRIEL AVALOS, TUBA Ot 263.9 07/13/2015 GABRIEL AVALOS, TUBA Ot 555.9 07/13/2015 GABRIEL AVALOS, TUBA Ot V58.69 07/13/2015 GABRIEL AVALOS, TUBA Ot V58.83 07/13/2015 GABRIEL AVALOS, TUBA Ot 263.9 07/13/2015 GABRIEL AVALOS, TUBA Ot 555.9 07/13/2015 GABRIEL AVALOS, TUBA Ot V58.69 07/13/2015 GABRIEL AVALOS, TUBA Ot 263.9 07/13/2015 GABRIEL AVALOS, TUBA Ot 555.9 07/13/2015 GABRIEL AVALOS, TUBA Ot V58.69 07/13/2015 GABRIEL AVALOS, TUBA Ot 263.9 07/13/2015 GABRIEL AVALOS, TUBA Ot 555.9 07/13/2015 GABRIEL AVALOS, TUBA Ot V58.69 07/13/2015 GABRIEL AVALOS, TUBA Ot 263.9 07/13/2015 GABRIEL AVALOS, TUBA Ot 555.9 07/13/2015 GABRIEL AVALOS, TUBA Ot V58.69 07/13/2015 GABRIEL AVALOS, TUBA Ot 263.9 07/13/2015 GABRIEL AVALOS, TUBA Ot 555.9 07/13/2015 GABRIEL AVALOS, TUBA Ot V58.69 07/13/2015 GABRIEL AVALOS, TUBA Ot 263.9 07/13/2015 GABRIEL AVALOS, TUBA Ot 555.9 07/13/2015 GABRIEL AVALOS, TUBA Ot V58.69 07/13/2015 GABRIEL AVALOS, TUBA Ot 263.9 07/13/2015 GABRIEL AVALOS, TUBA Ot 555.9 07/13/2015 GABRIEL AVALOS, TUBA Ot V58.69 07/13/2015 GABRIEL AVALOS, TUBA Ot 263.9 07/13/2015 GABRIEL AVALOS, TUBA Ot 555.9 07/13/2015 GABRIEL AVALOS, TUBA Ot V58.69 07/13/2015 GABRIEL AVALOS, TUBA Ot 263.9 07/13/2015 GABRIEL AVALOS, TUBA Ot 555.9 07/13/2015 GABRIEL AVALOS, TUBA Ot V58.69 07/13/2015 GABRIEL AVALOS, TUBA Ot E46 07/13/2015 GABRIEL AVALOS, TUBA Ot K50.90 07/13/2015 GABRIEL AVALOS, TUBA Ot Z79.899 07/13/2015 GABRIEL AVALOS, TUBA Ot E46 07/13/2015 GABRIEL AVALOS, TUBA Ot K50.90 07/13/2015 GABRIEL AVALOS, TUBA Ot Z79.899 07/13/2015 GABRIEL AVALOS, TUBA Ot E46 07/13/2015 GABRIEL AVALOS, TUBA Ot K50.90 07/13/2015 GABRIEL AVALOS, TUBA Ot Z79.899 07/13/2015 GABRIEL AVALOS, TUBA Ot E46 07/13/2015 GABRIEL AVALOS, TUBA Ot K50.90 07/13/2015 GABRIEL AVALOS, TUBA Ot Z79.899 07/13/2015 GABRIEL AVALOS, TUBA Ot E46 07/13/2015 GABRIEL AVALOS, TUBA Ot K50.90 07/13/2015 GABRIEL AVALOS, TUBA Ot Z79.899 07/13/2015 GABRIEL AVALOS, TUBA Ot E46 07/13/2015 GABRIEL AVALOS, TUBA Ot K50.90 07/13/2015 GABRIEL AVALOS, TUBA Ot Z79.899 07/13/2015 GABRIEL AVALOS, TUBA Ot E46 07/13/2015 GABRIEL AVALOS, TUBA Ot K50.90 07/13/2015 GABRIEL AVALOS, TUBA Ot Z79.899 07/13/2015 GABRIEL AVALOS, TUBA Ot E46 07/13/2015 GABRIEL AVALOS, TUBA Ot K50.90 07/13/2015 GABRIEL AVALOS, TUBA Ot Z79.899 07/13/2015 GABRIEL AVALOS, TUBA Ot R30.0 07/13/2015 GABRIEL AVALOS, TUBA Ot R50.9 07/13/2015 ALEX AVALOS, MAURICIO M Ot K50.90 07/13/2015 ALEX AVALOS, MAURICIO M Ot K91.2 07/13/2015 ALEX AVALOS, MAURICIO M Ot Z01.818 07/13/2015 GABRIEL AVALOS, TUBA Ot E46 07/13/2015 GABRIEL AVALOS, TUBA Ot K50.90 07/13/2015 GABRIEL AVALOS, TUBA Ot Z79.899 07/13/2015 LUDIN AVALOS, IESHA D Ot E46 07/13/2015 LUDIN AVALOS, IESHA D Ot K50.90 07/13/2015 GABRIEL AVALOS, TUBA Ot E46 07/13/2015 GABRIEL AVALOS, TUBA Ot K50.90 07/13/2015 GABRIEL AVALOS, TUBA Ot E46 07/13/2015 GABRIEL AVALOS, TUBA Ot K50.90 07/13/2015 GABRIEL AVALOS, TUBA Ot Z79.899 07/13/2015 GABRIEL AVALOS, TUBA Ot E46 07/13/2015 GABRIEL AVALOS, TUBA Ot K50.90 07/13/2015 GABRIEL AVALOS, TUBA Ot Z79.899 07/13/2015 GABRIEL AVALOS, TUBA Ot E46 07/13/2015 GABRIEL AVALOS, TUBA Ot K50.90 07/13/2015 GABRIEL AVALOS, TUBA Ot Z79.899 07/13/2015 GABRIEL AVALOS, TUBA Ot E46 07/13/2015 GABRIEL AVALOS, TUBA Ot K50.90 07/13/2015 GABRIEL AVALOS, TUBA Ot Z79.899 07/13/2015 GABRIEL AVALOS, TUBA Ot E46 07/13/2015 GABRIEL AVALOS, TUBA Ot K50.90 07/13/2015 GABRIEL AVALOS, TUBA Ot Z79.899 07/13/2015 GABRIEL AVALOS, TUBA Ot E46 07/13/2015 GABRIEL AVALOS, TUBA Ot K50.90 07/13/2015 GABRIEL AVALOS, TUBA Ot Z79.899 07/13/2015 GABRIEL AVALOS, TUBA Ot E46 07/13/2015 GABRIEL AVALOS, TUBA Ot K50.90 07/13/2015 GABRIEL AVALOS, TUBA Ot Z79.899 07/13/2015 GABRIEL AVALOS, TUBA Ot E46 07/13/2015 GABRIEL AVALOS, TUBA Ot K50.90 07/13/2015 GABRIEL AVALOS, TUBA Ot Z79.899 07/13/2015 GABRIEL AVALOS, TUBA Ot E46 07/13/2015 GABRIEL AVALOS, TUBA Ot K50.90 07/13/2015 GABRIEL AVALOS, TUBA Ot Z79.899 07/13/2015 GABRIEL AVALOS, TUBA Ot E46 07/13/2015 GABRIEL AVALOS, TUBA Ot K50.90 07/13/2015 GABRIEL AVALOS, TUBA Ot Z79.899 07/13/2015 GABRIEL AVALOS, TUBA Ot E46 07/13/2015 GABRIEL AVALOS, TUBA Ot K50.90 07/13/2015 GABRIEL AVALOS, TUBA Ot Z79.899 07/13/2015 GABRIEL AVALOS, TUBA Ot E46 07/13/2015 GABRIEL AVALOS, TUBA Ot K50.90 07/13/2015 GABRIEL AVALOS, TUBA Ot Z79.899 07/13/2015 GABRIEL AVALOS, TUBA Ot E46 07/13/2015 GABRIEL AVALOS, TUBA Ot K50.90 07/13/2015 GABRIEL AVALOS, TUBA Ot Z79.899 07/13/2015 GABRIEL AVALOS, TUBA Ot E46 07/13/2015 GABRIEL AVALOS, TUBA Ot K50.90 07/13/2015 GABRIEL AVALOS, TUBA Ot Z79.899 07/13/2015 GABRIEL AVALOS, TUBA Ot E46 07/13/2015 GABRIEL AVALOS, TUBA Ot K50.90 07/13/2015 GABRIEL AVALOS, TUBA Ot Z79.899 07/13/2015 GABRIEL AVALOS, TUBA Ot E46 07/13/2015 GABRIEL AVALOS, TUBA Ot K50.90 07/13/2015 GABRIEL AVALOS, TUBA Ot Z79.899 07/20/2015 GABRIEL AVALOS, TUBA Ot E46 UNSPECIFIED PROTEIN-CALORIE MALNUTRITION 07/20/2015 GABRIEL AVALOS, TUBA Ot K50.90 CROHN'S DISEASE, UNSPECIFIED, WITHOUT CO 07/20/2015 GABRIEL AVALOS, TUBA Ot 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 07/27/2015 Ot 263.9 PROTEIN-SAMMIE MALNUTR NOS 07/27/2015 Ot 263.9 PROTEIN-SAMMIE MALNUTR NOS 07/27/2015 Ot V58.69 OTH MED,LT, CURRENT USE 07/27/2015 GABRIEL AVALOS, TUBA Ot 263.9 PROTEIN-SAMMIE MALNUTR NOS 07/27/2015 GABRIEL AVALOS, TUBA Ot V58.69 OTH MED,LT,CURRENT USE 07/27/2015 GABRIEL AVALOS, TUBA Ot 555.9 REGIONAL ENTERITIS NOS 07/27/2015 GABRIEL AVALOS, TUBA Ot V58.69 OTH MED,LT,CURRENT USE 07/27/2015 GABRIEL AVALOS, TUBA Ot 263.9 PROTEIN-SAMMIE MALNUTR NOS 07/27/2015 GABRIEL AVALOS, TUBA Ot 555.9 REGIONAL ENTERITIS NOS 07/27/2015 GABRIEL AVALOS, TUBA Ot V58.69 OTH MED,LT,CURRENT USE 07/27/2015 GABRIEL AVALOS, TUBA Ot 263.9 PROTEIN-SAMMIE MALNUTR NOS 07/27/2015 GABRIEL AVALOS, TUBA Ot 555.9 REGIONAL ENTERITIS NOS 07/27/2015 GABRIEL AVALOS, TUBA Ot V58.69 OTH MED,LT,CURRENT USE 07/27/2015 GABRIEL AVALOS, TUBA Ot 263.9 PROTEIN-SAMMIE MALNUTR NOS 07/27/2015 GABRIEL AVALOS, TUBA Ot 555.9 REGIONAL ENTERITIS NOS 07/27/2015 GABRIEL AVALOS, TUBA Ot V58.69 OTH MED,LT,CURRENT USE 07/27/2015 GABRIEL AVALOS, TUBA Ot 263.9 PROTEIN-SAMMIE MALNUTR NOS 07/27/2015 GABRIEL AVALOS, TUBA Ot 555.9 REGIONAL ENTERITIS NOS 07/27/2015 GABRIEL AVALOS, TUBA Ot V58.69 OTH MED,LT,CURRENT USE 07/27/2015 GABRIEL AVALOS, TUBA Ot 263.9 PROTEIN-SAMMIE MALNUTR NOS 07/27/2015 GABRIEL AVALOS, TUBA Ot 555.9 REGIONAL ENTERITIS NOS 07/27/2015 GABRIEL AVALOS, TUBA Ot V58.69 OTH MED,LT,CURRENT USE 07/27/2015 GABRIEL AVALOS, TUBA Ot 263.9 PROTEIN-SAMMIE MALNUTR NOS 07/27/2015 GABRIEL AVALOS, TUBA Ot 555.9 REGIONAL ENTERITIS NOS 07/27/2015 GABRIEL AVALOS, TUBA Ot V58.69 OTH MED,LT,CURRENT USE 07/27/2015 GABRIEL AVALOS, TUBA Ot V58.83 ENCOUNTER FOR THERAPEUTIC DRUG MONITORIN 07/27/2015 GABRIEL AVALOS, TUBA Ot 263.9 PROTEIN-SAMMIE MALNUTR NOS 07/27/2015 GABRIEL AVALOS, TUBA Ot 555.9 REGIONAL ENTERITIS NOS 07/27/2015 GABRIEL AVALOS, TUBA Ot 263.9 PROTEIN-SAMMIE MALNUTR NOS 07/27/2015 GABRIEL AVALOS, TUBA Ot 555.9 REGIONAL ENTERITIS NOS 07/27/2015 GABRIEL AVALOS, TUBA Ot 263.9 PROTEIN-SAMMIE MALNUTR NOS 07/27/2015 GABRIEL AVALOS, TUBA Ot V58.69 OTH MED,LT,CURRENT USE 07/27/2015 GABRIEL AVALOS, TUBA Ot 263.9 PROTEIN-SAMMIE MALNUTR NOS 07/27/2015 GABRIEL AVALOS, TUBA Ot 555.9 REGIONAL ENTERITIS NOS 07/27/2015 GABRIEL AVALOS, TUBA Ot V58.69 OTH MED,LT,CURRENT USE 07/27/2015 GABRIEL AVALOS, TUBA Ot 263.9 PROTEIN-SAMMIE MALNUTR NOS 07/27/2015 GABRIEL AVALOS, TUBA Ot 555.9 REGIONAL ENTERITIS NOS 07/27/2015 GABRIEL AVALOS, TUBA Ot V58.69 OTH MED,LT,CURRENT USE 07/27/2015 GABRIEL AVALOS, TUBA Ot 263.9 PROTEIN-SAMMIE MALNUTR NOS 07/27/2015 GABRIEL AVALOS, TUBA Ot 555.9 REGIONAL ENTERITIS NOS 07/27/2015 GABRIEL AVALOS, TUBA Ot V58.69 OTH MED,LT,CURRENT USE 07/27/2015 GABRIEL AVALOS, TUBA Ot V58.83 ENCOUNTER FOR THERAPEUTIC DRUG MONITORIN 07/27/2015 GABRIEL AVALOS, TUBA Ot 263.9 PROTEIN-SAMMIE MALNUTR NOS 07/27/2015 GABRIEL AVALOS, TUBA Ot 555.9 REGIONAL ENTERITIS NOS 07/27/2015 GABRIEL AVALOS, TUBA Ot V58.69 OTH MED,LT,CURRENT USE 07/27/2015 GABRIEL AVALOS TUBA Ot V58.83 ENCOUNTER FOR THERAPEUTIC DRUG MONITORIN 07/27/2015 GABRIEL AVALOS, TUBA Ot 263.9 PROTEIN-SAMMIE MALNUTR NOS 07/27/2015 GABRIEL AVALOS, TUBA Ot 555.9 REGIONAL ENTERITIS NOS 07/27/2015 GABRIEL AVALOS, TUBA Ot V58.69 OTH MED,LT,CURRENT USE 07/27/2015 GABRIEL AVALOS, TUBA Ot 263.9 PROTEIN-SAMMIE MALNUTR NOS 07/27/2015 GABRIEL AVALOS, TUBA Ot 555.9 REGIONAL ENTERITIS NOS 07/27/2015 GABRIEL AVALOS, TUBA Ot V58.69 OTH MED,LT,CURRENT USE 07/27/2015 GABRIEL AVALOS, TUBA Ot V58.83 ENCOUNTER FOR THERAPEUTIC DRUG MONITORIN 07/27/2015 GABRIEL AVALOS, TUBA Ot 263.9 PROTEIN-SAMMIE MALNUTR NOS 07/27/2015 GABRIEL AVALOS, TUBA Ot 555.9 REGIONAL ENTERITIS NOS 07/27/2015 GABRIEL AVALOS, TUBA Ot V58.69 OTH MED,LT,CURRENT USE 07/27/2015 GABRIEL AVALOS, TUBA Ot 263.9 PROTEIN-SAMMIE MALNUTR NOS 07/27/2015 GABRIEL AVALOS, TUBA Ot 555.9 REGIONAL ENTERITIS NOS 07/27/2015 GABRIEL AVALOS, TUBA Ot V58.69 OTH MED,LT,CURRENT USE 07/27/2015 GABRIEL AVALOS, TUBA Ot 263.9 PROTEIN-SAMMIE MALNUTR NOS 07/27/2015 GABRIEL AVALOS, TUBA Ot 555.9 REGIONAL ENTERITIS NOS 07/27/2015 GABRIEL AVALOS, TUBA Ot V58.69 OTH MED,LT,CURRENT USE 07/27/2015 GABRIEL AVALOS, TUBA Ot 263.9 PROTEIN-SAMMIE MALNUTR NOS 07/27/2015 GABRIEL AVALOS, TUBA Ot 555.9 REGIONAL ENTERITIS NOS 07/27/2015 GABRIEL AVALOS, TUBA Ot V58.69 OTH MED,LT,CURRENT USE 07/27/2015 GABRIEL AVALOS, TUBA Ot 263.9 PROTEIN-SAMMIE MALNUTR NOS 07/27/2015 GABRIEL AVALOS, TUBA Ot 555.9 REGIONAL ENTERITIS NOS 07/27/2015 GABRIEL AVALOS, TUBA Ot V58.69 OTH MED,LT,CURRENT USE 07/27/2015 GABRIEL AVALOS, TUBA Ot 263.9 PROTEIN-SAMMIE MALNUTR NOS 07/27/2015 GABRIEL AVALOS, TUBA Ot 555.9 REGIONAL ENTERITIS NOS 07/27/2015 GABRIEL AVALOS, TUBA Ot V58.69 OTH MED,LT,CURRENT USE 07/27/2015 GABRIEL AVALOS, TUBA Ot 263.9 PROTEIN-SAMMIE MALNUTR NOS 07/27/2015 GABRIEL AVALOS, TUBA Ot 555.9 REGIONAL ENTERITIS NOS 07/27/2015 GABRIEL AVALOS, TUBA Ot V58.69 OTH MED,LT,CURRENT USE 07/27/2015 GABRIEL AVALOS, TUBA Ot 263.9 PROTEIN-SAMMIE MALNUTR NOS 07/27/2015 GABRIEL AVALOS, TUBA Ot 555.9 REGIONAL ENTERITIS NOS 07/27/2015 GABRIEL AVALOS, TUBA Ot V58.69 OTH MED,LT,CURRENT USE 07/27/2015 GABRIEL AVALOS, TUBA Ot 263.9 PROTEIN-SAMMIE MALNUTR NOS 07/27/2015 GABRIEL AVALOS, TUBA Ot 555.9 REGIONAL ENTERITIS NOS 07/27/2015 GABRIEL AVALOS, TUBA Ot V58.69 OT MED,LT,CURRENT USE 07/27/2015 GABRIEL AVALOS, TUBA Ot E46 UNSPECIFIED PROTEIN-CALORIE MALNUTRITION 07/27/2015 GABRIEL AVALOS, TUBA Ot K50.90 CROHN'S DISEASE, UNSPECIFIED, WITHOUT CO 07/27/2015 GABRIEL AVALOS, TUBA Ot 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 07/27/2015 GABRIEL AVALOS TUBA Ot E46 UNSPECIFIED PROTEIN-CALORIE MALNUTRITION 07/27/2015 GABRIEL AVALOS TUBA Ot K50.90 CROHN'S DISEASE, UNSPECIFIED, WITHOUT CO 07/27/2015 GABRIEL AVALOS, TUBA Ot 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 07/27/2015 GABRIEL AVALOS, TUBA Ot E46 UNSPECIFIED PROTEIN-CALORIE MALNUTRITION 07/27/2015 GABRIEL AVALOS, TUBA Ot K50.90 CROHN'S DISEASE, UNSPECIFIED, WITHOUT CO 07/27/2015 GABRIEL AVALOS, TUBA Ot 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 07/27/2015 GABRIEL AVALOS, TUBA Ot E46 UNSPECIFIED PROTEIN-CALORIE MALNUTRITION 07/27/2015 GABRIEL AVALOS, TUBA Ot K50.90 CROHN'S DISEASE, UNSPECIFIED, WITHOUT CO 07/27/2015 GABRIEL AVALOS, TUBA Ot Z79.899 OTHER ASSISTED (CURRENT) DRUG THERAPY 07/27/2015 GABRIEL AVALOS, TUBA Ot E46 UNSPECIFIED PROTEIN-CALORIE MALNUTRITION 07/27/2015 GABRIEL AVALOS, TUBA Ot K50.90 CROHN'S DISEASE, UNSPECIFIED, WITHOUT CO 07/27/2015 GABRIEL AVALOS TUBA Ot Z79.899 OTHER ASSISTED (CURRENT) DRUG THERAPY 07/27/2015 GABRIEL AVALOS, TUBA Ot E46 UNSPECIFIED PROTEIN-CALORIE MALNUTRITION 07/27/2015 GABRIEL AVALOS, TUBA Ot K50.90 CROHN'S DISEASE, UNSPECIFIED, WITHOUT CO 07/27/2015 GABRIEL AVALOS, TUBA Ot 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 07/27/2015 GABRIEL AVALOS, TUBA Ot E46 UNSPECIFIED PROTEIN-CALORIE MALNUTRITION 07/27/2015 GABRIEL AVALOS, TUBA Ot K50.90 CROHN'S DISEASE, UNSPECIFIED, WITHOUT CO 07/27/2015 GABRIEL AVALOS, TUBA Ot 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 07/27/2015 GABRIEL AVALOS, TUBA Ot E46 UNSPECIFIED PROTEIN-CALORIE MALNUTRITION 07/27/2015 GABRIEL AVALOS, TUBA Ot K50.90 CROHN'S DISEASE, UNSPECIFIED, WITHOUT CO 07/27/2015 GABRIEL AVALOS, TUBA Ot Z79.899 OTHER ASSISTED (CURRENT) DRUG THERAPY 07/27/2015 GABRIEL AVALOS, TUBA Ot R30.0 DYSURIA 07/27/2015 GBARIEL AVALOS, TUBA Ot R50.9 FEVER, UNSPECIFIED 07/27/2015 ALEX AVALOS, MAURICIO Coley Ot K50.90 CROHN'S DISEASE, UNSPECIFIED, WITHOUT CO 07/27/2015 ALEX AVALOS, MAURICIO Coley Ot K91.2 POSTSURGICAL MALABSORPTION, NOT ELSEWHER 07/27/2015 ALEX AVALOS, MAURICIO Coley Ot Z01.818 ENCOUNTER FOR OTHER PREPROCEDURAL EXAMIN 07/27/2015 GABRIEL AVALOS, TUBA Ot E46 UNSPECIFIED PROTEIN-CALORIE MALNUTRITION 07/27/2015 GABRIEL AVALOS, TUBA Ot K50.90 CROHN'S DISEASE, UNSPECIFIED, WITHOUT CO 07/27/2015 GABRIEL AVALOS, TUBA Ot 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 07/27/2015 LUDIN AVALOS, IESHA D Ot E46 UNSPECIFIED PROTEIN-CALORIE MALNUTRITION 07/27/2015 LUDIN AVALOS, IESHA D Ot K50.90 CROHN'S DISEASE, UNSPECIFIED, WITHOUT CO 07/27/2015 GABRIEL AVALOS, TUBA Ot E46 UNSPECIFIED PROTEIN-CALORIE MALNUTRITION 07/27/2015 GABRIEL AVALOS, TUBA Ot K50.90 CROHN'S DISEASE, UNSPECIFIED, WITHOUT CO 07/27/2015 GABRIEL AVALOS, TUBA Ot E46 UNSPECIFIED PROTEIN-CALORIE MALNUTRITION 07/27/2015 GABRIEL AVALOS, TUBA Ot K50.90 CROHN'S DISEASE, UNSPECIFIED, WITHOUT CO 07/27/2015 GABRIEL AVALOS, TUBA Ot Z79.899 OTHER ASSISTED (CURRENT) DRUG THERAPY 07/27/2015 GABRIEL AVALOS, TUBA Ot E46 UNSPECIFIED PROTEIN-CALORIE MALNUTRITION 07/27/2015 GABRIEL AVALOS, TUBA Ot K50.90 CROHN'S DISEASE, UNSPECIFIED, WITHOUT CO 07/27/2015 GABRIEL AVALOS, TUBA Ot 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 07/27/2015 GABRIEL AVALOS, TUBA Ot E46 UNSPECIFIED PROTEIN-CALORIE MALNUTRITION 07/27/2015 GABRIEL AVALOS, TUBA Ot K50.90 CROHN'S DISEASE, UNSPECIFIED, WITHOUT CO 07/27/2015 GABRIEL AVALOS, TUBA Ot 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 07/27/2015 GABRIEL AVALOS, TUBA Ot E46 UNSPECIFIED PROTEIN-CALORIE MALNUTRITION 07/27/2015 GABRIEL AVALOS, TUBA Ot K50.90 CROHN'S DISEASE, UNSPECIFIED, WITHOUT CO 07/27/2015 GABRIEL AVALOS, TUBA Ot 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 07/27/2015 GABRIEL AVALOS, TUBA Ot E46 UNSPECIFIED PROTEIN-CALORIE MALNUTRITION 07/27/2015 GABRIEL AVALOS, TUBA Ot K50.90 CROHN'S DISEASE, UNSPECIFIED, WITHOUT CO 07/27/2015 GABRIEL AVALOS, TUBA Ot Z79.899 OTHER ASSISTED (CURRENT) DRUG THERAPY 07/27/2015 GABRIEL AVALOS, TUBA Ot E46 UNSPECIFIED PROTEIN-CALORIE MALNUTRITION 07/27/2015 GABRIEL AVALOS, TUBA Ot K50.90 CROHN'S DISEASE, UNSPECIFIED, WITHOUT CO 07/27/2015 GABRIEL AVALOS, TUBA Ot Z79.899 OTHER ASSISTED (CURRENT) DRUG THERAPY 07/27/2015 GABRIEL AVALOS, TUBA Ot E46 UNSPECIFIED PROTEIN-CALORIE MALNUTRITION 07/27/2015 GABRIEL AVALOS, TUBA Ot K50.90 CROHN'S DISEASE, UNSPECIFIED, WITHOUT CO 07/27/2015 GABRIEL AVALOS, TUBA Ot 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 07/27/2015 GABRIEL AVALOS, TUBA Ot E46 UNSPECIFIED PROTEIN-CALORIE MALNUTRITION 07/27/2015 GABRIEL AVALOS, TUBA Ot K50.90 CROHN'S DISEASE, UNSPECIFIED, WITHOUT CO 07/27/2015 GABRIEL AVALOS, TUBA Ot Z79.899 OTHER ASSISTED (CURRENT) DRUG THERAPY 07/27/2015 GABRIEL AVALOS, TUBA Ot E46 UNSPECIFIED PROTEIN-CALORIE MALNUTRITION 07/27/2015 GABRIEL AVALOS, TUBA Ot K50.90 CROHN'S DISEASE, UNSPECIFIED, WITHOUT CO 07/27/2015 GABRIEL AVALOS, TUBA Ot Z79.899 OTHER ASSISTED (CURRENT) DRUG THERAPY 07/27/2015 GABRIEL AVALOS, TUBA Ot E46 UNSPECIFIED PROTEIN-CALORIE MALNUTRITION 07/27/2015 GABRIEL AVALOS, TUBA Ot K50.90 CROHN'S DISEASE, UNSPECIFIED, WITHOUT CO 07/27/2015 GABRIEL AVALOS, TUBA Ot Z79.899 OTHER ASSISTED (CURRENT) DRUG THERAPY 07/27/2015 GABRIEL AVALOS, TUBA Ot E46 UNSPECIFIED PROTEIN-CALORIE MALNUTRITION 07/27/2015 GABRIEL AVALOS, TUBA Ot K50.90 CROHN'S DISEASE, UNSPECIFIED, WITHOUT CO 07/27/2015 GABRIEL AVALOS, TUBA Ot Z79.899 OTHER ASSISTED (CURRENT) DRUG THERAPY 07/27/2015 GABRIEL AVALOS, TUBA Ot E46 UNSPECIFIED PROTEIN-CALORIE MALNUTRITION 07/27/2015 GABRIEL AVALOS, TUBA Ot K50.90 CROHN'S DISEASE, UNSPECIFIED, WITHOUT CO 07/27/2015 GABRIEL AVALOS, TUBA Ot Z79.899 OTHER ASSISTED (CURRENT) DRUG THERAPY 07/27/2015 GABRIEL AVALOS, TUBA Ot E46 UNSPECIFIED PROTEIN-CALORIE MALNUTRITION 07/27/2015 GABRIEL AVALOS, TUBA Ot K50.90 CROHN'S DISEASE, UNSPECIFIED, WITHOUT CO 07/27/2015 GABRIEL AVALOS, TUBA Ot Z79.899 OTHER ASSISTED (CURRENT) DRUG THERAPY 07/27/2015 GABRIEL AVALOS, TUBA Ot E46 UNSPECIFIED PROTEIN-CALORIE MALNUTRITION 07/27/2015 GABRIEL AVALOS, TUBA Ot K50.90 CROHN'S DISEASE, UNSPECIFIED, WITHOUT CO 07/27/2015 GABRIEL AVALOS, TUBA Ot Z79.899 OTHER ASSISTED (CURRENT) DRUG THERAPY 07/27/2015 GABRIEL AVALOS, TUBA Ot E46 UNSPECIFIED PROTEIN-CALORIE MALNUTRITION 07/27/2015 GABRIEL AVALOS, TUBA Ot K50.90 CROHN'S DISEASE, UNSPECIFIED, WITHOUT CO 07/27/2015 GABRIEL AVALOS, TUBA Ot Z79.899 OTHER ASSISTED (CURRENT) DRUG THERAPY 07/27/2015 GABRIEL AVALOS, TUBA Ot E46 UNSPECIFIED PROTEIN-CALORIE MALNUTRITION 07/27/2015 GABRIEL AVLAOS, TUBA Ot K50.90 CROHN'S DISEASE, UNSPECIFIED, WITHOUT CO 07/27/2015 GABRIEL AVALOS, TUBA Ot Z79.899 OTHER ASSISTED (CURRENT) DRUG THERAPY 07/27/2015 GABRIEL AVALOS, TUBA Ot E46 UNSPECIFIED PROTEIN-CALORIE MALNUTRITION 07/27/2015 GABRIEL AVALOS, TUBA Ot K50.90 CROHN'S DISEASE, UNSPECIFIED, WITHOUT CO 07/27/2015 GABRIEL AVALOS, TUBA Ot 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 08/04/2015 GABRIEL AVALOS, TUBA Ot E46 UNSPECIFIED PROTEIN-CALORIE MALNUTRITION 08/04/2015 GABRIEL AVALOS, TUBA Ot K50.90 CROHN'S DISEASE, UNSPECIFIED, WITHOUT CO 08/04/2015 GABRIEL AVALOS, TUBA Ot Z79.899 OTHER ASSISTED (CURRENT) DRUG THERAPY 08/10/2015 GABRIEL AVALOS, TUBA Ot E46 UNSPECIFIED PROTEIN-CALORIE MALNUTRITION 08/10/2015 GABRIEL AVALOS, TUBA Ot K50.90 CROHN'S DISEASE, UNSPECIFIED, WITHOUT CO 08/10/2015 GABRIEL AVALOS, TUBA Ot 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 08/10/2015 GABRIEL AVALOS, TUBA Ot E46 UNSPECIFIED PROTEIN-CALORIE MALNUTRITION 08/10/2015 GABRIEL AVALOS, TUBA Ot K50.90 CROHN'S DISEASE, UNSPECIFIED, WITHOUT CO 08/10/2015 GABRIEL AVALOS, TUBA Ot 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 08/10/2015 GABRIEL AVALOS, TUBA Ot E46 UNSPECIFIED PROTEIN-CALORIE MALNUTRITION 08/10/2015 GABRIEL AVALOS, TUBA Ot K50.90 CROHN'S DISEASE, UNSPECIFIED, WITHOUT CO 08/10/2015 GABRIEL AVALOS, TUBA Ot 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 08/18/2015 GABRIEL AVALOS, TUBA Ot E46 UNSPECIFIED PROTEIN-CALORIE MALNUTRITION 08/18/2015 GABRIEL AVALOS, TUBA Ot K50.90 CROHN'S DISEASE, UNSPECIFIED, WITHOUT CO 08/18/2015 GABRIEL AVALOS, TUBA Ot 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 08/25/2015 GABRIEL AVALOS, TUBA Ot E46 UNSPECIFIED PROTEIN-CALORIE MALNUTRITION 08/25/2015 GABRIEL AVALOS, TUBA Ot K50.90 CROHN'S DISEASE, UNSPECIFIED, WITHOUT CO 08/25/2015 GABRIEL AVALOS, TUBA Ot Z79.899 OTHER ASSISTED (CURRENT) DRUG THERAPY 08/25/2015 GABRIEL AVALOS, TUBA Ot E46 UNSPECIFIED PROTEIN-CALORIE MALNUTRITION 08/25/2015 GABRIEL AVALOS, TUBA Ot K50.90 CROHN'S DISEASE, UNSPECIFIED, WITHOUT CO 08/25/2015 GABRIEL AVALOS, TUBA Ot 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 08/25/2015 GABRIEL AVALOS, TUBA Ot E46 UNSPECIFIED PROTEIN-CALORIE MALNUTRITION 08/25/2015 GABRIEL AVALOS, TUBA Ot K50.90 CROHN'S DISEASE, UNSPECIFIED, WITHOUT CO 08/25/2015 GABRIEL AVALOS, TUBA Ot Z79.899 OTHER ASSISTED (CURRENT) DRUG THERAPY 08/30/2015 GABRIEL AVALOS, TUBA Ot E46 UNSPECIFIED PROTEIN-CALORIE MALNUTRITION 08/30/2015 GABRIEL AVALOS TUBA Ot K50.90 CROHN'S DISEASE, UNSPECIFIED, WITHOUT CO 08/30/2015 GABRIEL AVALOS, TUBA Ot 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 08/31/2015 GABRIEL AVALOS, TUBA Ot E46 UNSPECIFIED PROTEIN-CALORIE MALNUTRITION 08/31/2015 GABRIEL AVALOS, TUBA Ot K50.90 CROHN'S DISEASE, UNSPECIFIED, WITHOUT CO 08/31/2015 GABRIEL AVALOS, TUBA Ot Z79.899 OTHER ASSISTED (CURRENT) DRUG THERAPY 09/01/2015 GABRIEL AVALOS, TUBA Ot E46 UNSPECIFIED PROTEIN-CALORIE MALNUTRITION 09/01/2015 GABRIEL AVALOS, TUBA Ot K50.90 CROHN'S DISEASE, UNSPECIFIED, WITHOUT CO 09/01/2015 GABRIEL AVALOS, TUBA Ot 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 09/09/2015 GABRIEL AVALOS, TUBA Ot E46 UNSPECIFIED PROTEIN-CALORIE MALNUTRITION 09/09/2015 GABRIEL AVALOS, TUBA Ot K50.90 CROHN'S DISEASE, UNSPECIFIED, WITHOUT CO 09/09/2015 GABRIEL AVALOS, TUBA Ot Z79.899 OTHER ASSISTED (CURRENT) DRUG THERAPY 09/22/2015 GABRIEL AVALOS, TUBA Ot E46 UNSPECIFIED PROTEIN-CALORIE MALNUTRITION 09/22/2015 GABRIEL AVALOS, TUBA Ot K50.90 CROHN'S DISEASE, UNSPECIFIED, WITHOUT CO 09/22/2015 GABRIEL AVALOS, TUBA Ot Z79.899 OTHER ASSISTED (CURRENT) DRUG THERAPY 10/01/2017 Ot 263.9 PROTEIN-SAMMIE MALNUTR NOS 10/01/2017 Ot 263.9 PROTEIN-SAMMIE MALNUTR NOS 10/01/2017 Ot V58.69 OTH MED,LT, CURRENT USE 10/01/2017 GABRIEL AVALOS, TUBA Ot 263.9 PROTEIN-SAMMIE MALNUTR NOS 10/01/2017 GABRIEL AVALOS, TUBA Ot V58.69 OTH MED,LT,CURRENT USE 10/01/2017 GABRIEL AVALOS, TUBA Ot 555.9 REGIONAL ENTERITIS NOS 10/01/2017 GABRIEL AVALOS, TUBA Ot V58.69 OTH MED,LT,CURRENT USE 10/01/2017 GABRIEL AVALOS, TUBA Ot 263.9 PROTEIN-SAMMIE MALNUTR NOS 10/01/2017 GABRIEL AVALOS, TUBA Ot 555.9 REGIONAL ENTERITIS NOS 10/01/2017 GABRIEL AVALOS, TUBA Ot V58.69 OTH MED,LT,CURRENT USE 10/01/2017 GABRIEL AVALOS, TUBA Ot 263.9 PROTEIN-SAMMIE MALNUTR NOS 10/01/2017 GABRIEL AVALOS, TUBA Ot 555.9 REGIONAL ENTERITIS NOS 10/01/2017 GABRIEL AVALOS, TUBA Ot V58.69 OTH MED,LT,CURRENT USE 10/01/2017 GABRIEL AVALOS, TUBA Ot 263.9 PROTEIN-SAMMIE MALNUTR NOS 10/01/2017 GABRIEL AVALOS, TUBA Ot 555.9 REGIONAL ENTERITIS NOS 10/01/2017 GABRIEL AVALOS, TUBA Ot V58.69 OTH MED,LT,CURRENT USE 10/01/2017 GABRIEL AVALOS, TUBA Ot 263.9 PROTEIN-SAMMIE MALNUTR NOS 10/01/2017 GABRIEL AVALOS, TUBA Ot 555.9 REGIONAL ENTERITIS NOS 10/01/2017 GABRIEL AVALOS, TUBA Ot V58.69 OTH MED,LT,CURRENT USE 10/01/2017 GABRIEL AVALOS, TUBA Ot 263.9 PROTEIN-SAMMIE MALNUTR NOS 10/01/2017 GABRIEL AVALOS, TUBA Ot 555.9 REGIONAL ENTERITIS NOS 10/01/2017 GABRIEL AVALOS, TUBA Ot V58.69 OTH MED,LT,CURRENT USE 10/01/2017 GABRIEL AVALOS, TUBA Ot 263.9 PROTEIN-SAMMIE MALNUTR NOS 10/01/2017 GABRIEL AVALOS, TUBA Ot 555.9 REGIONAL ENTERITIS NOS 10/01/2017 GABRIEL AVALOS, TUBA Ot V58.69 OTH MED,LT,CURRENT USE 10/01/2017 GABRIEL AVALOS, TUBA Ot V58.83 ENCOUNTER FOR THERAPEUTIC DRUG MONITORIN 10/01/2017 GABRIEL AVALOS, TUBA Ot 263.9 PROTEIN-SAMMIE MALNUTR NOS 10/01/2017 GABRIEL AVALOS, TUBA Ot 555.9 REGIONAL ENTERITIS NOS 10/01/2017 GABRIEL AVALOS, TUBA Ot 263.9 PROTEIN-SAMMIE MALNUTR NOS 10/01/2017 GABRIEL AVALOS, TUBA Ot 555.9 REGIONAL ENTERITIS NOS 10/01/2017 GABRIEL AVALOS, TUBA Ot 263.9 PROTEIN-SAMMIE MALNUTR NOS 10/01/2017 GABRIEL AVALOS, TUBA Ot V58.69 OTH MED,LT,CURRENT USE 10/01/2017 GABRIEL AVALOS, TUBA Ot 263.9 PROTEIN-SAMMIE MALNUTR NOS 10/01/2017 GABRIEL AVALOS, TUBA Ot 555.9 REGIONAL ENTERITIS NOS 10/01/2017 GABRIEL AVALOS, TUBA Ot V58.69 OTH MED,LT,CURRENT USE 10/01/2017 GABRIEL AVALOS, TUBA Ot 263.9 PROTEIN-SAMMIE MALNUTR NOS 10/01/2017 GABRIEL AVALOS, TUBA Ot 555.9 REGIONAL ENTERITIS NOS 10/01/2017 GABRIEL AVALOS, TUBA Ot V58.69 OTH MED,LT,CURRENT USE 10/01/2017 GABRIEL AVALOS, TUBA Ot 263.9 PROTEIN-SAMMIE MALNUTR NOS 10/01/2017 GABRIEL AVALOS, TUBA Ot 555.9 REGIONAL ENTERITIS NOS 10/01/2017 GABRIEL AVALOS, TUBA Ot V58.69 OTH MED,LT,CURRENT USE 10/01/2017 GABRIEL AVALOS, TUBA Ot V58.83 ENCOUNTER FOR THERAPEUTIC DRUG MONITORIN 10/01/2017 GABRIEL AVALOS, TUBA Ot 263.9 PROTEIN-SAMMIE MALNUTR NOS 10/01/2017 GABRIEL AVALOS, TUBA Ot 555.9 REGIONAL ENTERITIS NOS 10/01/2017 GABRIEL AVALOS, TUBA Ot V58.69 OTH MED,LT,CURRENT USE 10/01/2017 GABRIEL AVALOS, TUBA Ot V58.83 ENCOUNTER FOR THERAPEUTIC DRUG MONITORIN 10/01/2017 GABRIEL AVALOS, TUBA Ot 263.9 PROTEIN-SAMMIE MALNUTR NOS 10/01/2017 GABRIEL AVALOS, TUBA Ot 555.9 REGIONAL ENTERITIS NOS 10/01/2017 GABRIEL AVALOS, TUBA Ot V58.69 OTH MED,LT,CURRENT USE 10/01/2017 GABRIEL AVALOS, TUBA Ot 263.9 PROTEIN-SAMMIE MALNUTR NOS 10/01/2017 GABRIEL AVALOS, TUBA Ot 555.9 REGIONAL ENTERITIS NOS 10/01/2017 GABRIEL AVALOS, TUBA Ot V58.69 OTH MED,LT,CURRENT USE 10/01/2017 GABRIEL AVALOS, TUBA Ot V58.83 ENCOUNTER FOR THERAPEUTIC DRUG MONITORIN 10/01/2017 GABRIEL AVALOS, TUBA Ot 263.9 PROTEIN-SAMMIE MALNUTR NOS 10/01/2017 GABRIEL AVALOS, TUBA Ot 555.9 REGIONAL ENTERITIS NOS 10/01/2017 GABRIEL AVALOS, TUBA Ot V58.69 OTH MED,LT,CURRENT USE 10/01/2017 GABRIEL AVALOS, TUBA Ot 263.9 PROTEIN-SAMMIE MALNUTR NOS 10/01/2017 GABRIEL AVALOS, TUBA Ot 555.9 REGIONAL ENTERITIS NOS 10/01/2017 GABRIEL AVALOS, TUBA Ot V58.69 OTH MED,LT,CURRENT USE 10/01/2017 GABRIEL AVALOS, TUBA Ot 263.9 PROTEIN-SAMMIE MALNUTR NOS 10/01/2017 GABRIEL AVALOS, TUBA Ot 555.9 REGIONAL ENTERITIS NOS 10/01/2017 GABRIEL AVALOS, TUBA Ot V58.69 OTH MED,LT,CURRENT USE 10/01/2017 GABRIEL AVALOS, TUBA Ot 263.9 PROTEIN-SAMMIE MALNUTR NOS 10/01/2017 GABRIEL AVALOS, TUBA Ot 555.9 REGIONAL ENTERITIS NOS 10/01/2017 GABRIEL AVALOS, TUBA Ot V58.69 OTH MED,LT,CURRENT USE 10/01/2017 GABRIEL AVALOS, TUBA Ot 263.9 PROTEIN-SAMMIE MALNUTR NOS 10/01/2017 GABRIEL AVALOS, TUBA Ot 555.9 REGIONAL ENTERITIS NOS 10/01/2017 GABRIEL AVALOS, TUBA Ot V58.69 OTH MED,LT,CURRENT USE 10/01/2017 GABRIEL AVALOS, TUBA Ot 263.9 PROTEIN-SAMMIE MALNUTR NOS 10/01/2017 GABRIEL AVALOS, TUBA Ot 555.9 REGIONAL ENTERITIS NOS 10/01/2017 GABRIEL AVALOS, TUBA Ot V58.69 OTH MED,LT,CURRENT USE 10/01/2017 GABRIEL AVALOS, TUBA Ot 263.9 PROTEIN-SAMMIE MALNUTR NOS 10/01/2017 GABRIEL AVALOS, TUBA Ot 555.9 REGIONAL ENTERITIS NOS 10/01/2017 GABRIEL AVALOS, TUBA Ot V58.69 OTH MED,LT,CURRENT USE 10/01/2017 GABRIEL AVALOS, TUBA Ot 263.9 PROTEIN-SAMMIE MALNUTR NOS 10/01/2017 GABRIEL AVALOS, TUBA Ot 555.9 REGIONAL ENTERITIS NOS 10/01/2017 GABRIEL AVALOS, TUBA Ot V58.69 OTH MED,LT,CURRENT USE 10/01/2017 GABRIEL AVALOS, TUBA Ot 263.9 PROTEIN-SAMMIE MALNUTR NOS 10/01/2017 GABRIEL AVALOS, TUBA Ot 555.9 REGIONAL ENTERITIS NOS 10/01/2017 GABRIEL AVALOS, TUBA Ot V58.69 OTH MED,LT,CURRENT USE 10/01/2017 GABRIEL AVALOS, TUBA Ot E46 UNSPECIFIED PROTEIN-CALORIE MALNUTRITION 10/01/2017 GABRIEL AVALOS TUBA Ot K50.90 CROHN'S DISEASE, UNSPECIFIED, WITHOUT CO 10/01/2017 GABRIEL AVALOS, TUBA Ot 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 10/01/2017 GABRIEL AVALOS, TUBA Ot E46 UNSPECIFIED PROTEIN-CALORIE MALNUTRITION 10/01/2017 GABRIEL AVALOS, TUBA Ot K50.90 CROHN'S DISEASE, UNSPECIFIED, WITHOUT CO 10/01/2017 GABRIEL AVALOS, TUBA Ot 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 10/01/2017 GABRIEL AVALOS TUBA Ot E46 UNSPECIFIED PROTEIN-CALORIE MALNUTRITION 10/01/2017 GABRIEL AVALOS, TUBA Ot K50.90 CROHN'S DISEASE, UNSPECIFIED, WITHOUT CO 10/01/2017 GABRIEL AVALOS, TUBA Ot Z79.899 OTHER ASSISTED (CURRENT) DRUG THERAPY 10/01/2017 GABRIEL AVALOS, TUBA Ot E46 UNSPECIFIED PROTEIN-CALORIE MALNUTRITION 10/01/2017 GABRIEL AVALOS, TUBA Ot K50.90 CROHN'S DISEASE, UNSPECIFIED, WITHOUT CO 10/01/2017 GABRIEL AVALOS, TUBA Ot Z79.899 OTHER ASSISTED (CURRENT) DRUG THERAPY 10/01/2017 GABRIEL AVALOS, TUBA Ot E46 UNSPECIFIED PROTEIN-CALORIE MALNUTRITION 10/01/2017 GABRIEL AVALOS, TUBA Ot K50.90 CROHN'S DISEASE, UNSPECIFIED, WITHOUT CO 10/01/2017 GABRIEL AVALOS, TUBA Ot 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 10/01/2017 GABRIEL AVALOS, TUBA Ot E46 UNSPECIFIED PROTEIN-CALORIE MALNUTRITION 10/01/2017 GABRIEL AVALOS, TUBA Ot K50.90 CROHN'S DISEASE, UNSPECIFIED, WITHOUT CO 10/01/2017 GABRIEL AVALOS, TUBA Ot 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 10/01/2017 GABRIEL AVALOS, TUBA Ot E46 UNSPECIFIED PROTEIN-CALORIE MALNUTRITION 10/01/2017 GABRIEL AVALOS, TUBA Ot K50.90 CROHN'S DISEASE, UNSPECIFIED, WITHOUT CO 10/01/2017 GABRIEL AVALOS, TUBA Ot Z79.899 OTHER ASSISTED (CURRENT) DRUG THERAPY 10/01/2017 GABRIEL AVALOS, TUBA Ot E46 UNSPECIFIED PROTEIN-CALORIE MALNUTRITION 10/01/2017 GABRIEL AVALOS, TUBA Ot K50.90 CROHN'S DISEASE, UNSPECIFIED, WITHOUT CO 10/01/2017 GABRIEL AVALOS, TUBA Ot Z79.899 OTHER ASSISTED (CURRENT) DRUG THERAPY 10/01/2017 GABRIEL AVALOS, TUBA Ot R30.0 DYSURIA 10/01/2017 GABRIEL AVALOS, TUBA Ot R50.9 FEVER, UNSPECIFIED 10/01/2017 ALEX AVALOS, MAURICIO Coley Ot K50.90 CROHN'S DISEASE, UNSPECIFIED, WITHOUT CO 10/01/2017 ALEX AVALOS, MAURICIO Coley Ot K91.2 POSTSURGICAL MALABSORPTION, NOT ELSEWHER 10/01/2017 ALEX AVALOS, MAURICIO Coley Ot Z01.818 ENCOUNTER FOR OTHER PREPROCEDURAL EXAMIN 10/01/2017 GABRIEL AVALOS, TUBA Ot E46 UNSPECIFIED PROTEIN-CALORIE MALNUTRITION 10/01/2017 GABRIEL AVALOS, TUBA Ot K50.90 CROHN'S DISEASE, UNSPECIFIED, WITHOUT CO 10/01/2017 GABRIEL AVALOS, TUBA Ot 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 10/01/2017 LUDIN AVALOS, IESHA D Ot E46 UNSPECIFIED PROTEIN-CALORIE MALNUTRITION 10/01/2017 LUDIN AVALOS, IESHA D Ot K50.90 CROHN'S DISEASE, UNSPECIFIED, WITHOUT CO 10/01/2017 GABRIEL AVALOS, TUBA Ot E46 UNSPECIFIED PROTEIN-CALORIE MALNUTRITION 10/01/2017 GABRIEL AVALOS, TUBA Ot K50.90 CROHN'S DISEASE, UNSPECIFIED, WITHOUT CO 10/01/2017 GABRIEL AVALOS, TUBA Ot E46 UNSPECIFIED PROTEIN-CALORIE MALNUTRITION 10/01/2017 GABRIEL AVALOS, TUBA Ot K50.90 CROHN'S DISEASE, UNSPECIFIED, WITHOUT CO 10/01/2017 GABRIEL AVALOS, TUBA Ot Z79.899 OTHER ASSISTED (CURRENT) DRUG THERAPY 10/01/2017 GABRIEL AVALOS, TUBA Ot E46 UNSPECIFIED PROTEIN-CALORIE MALNUTRITION 10/01/2017 GABRIEL AVALOS, TUBA Ot K50.90 CROHN'S DISEASE, UNSPECIFIED, WITHOUT CO 10/01/2017 GABRIEL AVALOS, TUBA Ot 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 10/01/2017 GABRIEL AVALOS, TUBA Ot E46 UNSPECIFIED PROTEIN-CALORIE MALNUTRITION 10/01/2017 GABRIEL AVALOS, TUBA Ot K50.90 CROHN'S DISEASE, UNSPECIFIED, WITHOUT CO 10/01/2017 GABRIEL AVALOS, TUBA Ot 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 10/01/2017 GABRIEL AVALSO, TUBA Ot E46 UNSPECIFIED PROTEIN-CALORIE MALNUTRITION 10/01/2017 GABRIEL AVALOS, TUBA Ot K50.90 CROHN'S DISEASE, UNSPECIFIED, WITHOUT CO 10/01/2017 GABRIEL AVALOS, TUBA Ot Z79.899 OTHER ASSISTED (CURRENT) DRUG THERAPY 10/01/2017 GABRIEL AVALOS, TUBA Ot E46 UNSPECIFIED PROTEIN-CALORIE MALNUTRITION 10/01/2017 GABRIEL AVALOS, TUBA Ot K50.90 CROHN'S DISEASE, UNSPECIFIED, WITHOUT CO 10/01/2017 GABRIEL AVALOS, TUBA Ot Z79.899 OTHER ASSISTED (CURRENT) DRUG THERAPY 10/01/2017 GABRIEL AVALOS, TUBA Ot E46 UNSPECIFIED PROTEIN-CALORIE MALNUTRITION 10/01/2017 GABRIEL AVALOS, TUBA Ot K50.90 CROHN'S DISEASE, UNSPECIFIED, WITHOUT CO 10/01/2017 GABRIEL AVALOS, TUBA Ot Z79.899 OTHER ASSISTED (CURRENT) DRUG THERAPY 10/01/2017 GABRIEL AVALOS, TUBA Ot E46 UNSPECIFIED PROTEIN-CALORIE MALNUTRITION 10/01/2017 GABRIEL AVALOS, TUBA Ot K50.90 CROHN'S DISEASE, UNSPECIFIED, WITHOUT CO 10/01/2017 GABRIEL AVALOS, TUBA Ot Z79.899 OTHER ASSISTED (CURRENT) DRUG THERAPY 10/01/2017 GABRIEL AVALOS, TUBA Ot E46 UNSPECIFIED PROTEIN-CALORIE MALNUTRITION 10/01/2017 GABRIEL AVALOS, TUBA Ot K50.90 CROHN'S DISEASE, UNSPECIFIED, WITHOUT CO 10/01/2017 GABRIEL AVALOS, TUBA Ot Z79.899 OTHER ASSISTED (CURRENT) DRUG THERAPY 10/01/2017 GABRIEL AVALOS, TUBA Ot E46 UNSPECIFIED PROTEIN-CALORIE MALNUTRITION 10/01/2017 GABRIEL AVALOS, TUBA Ot K50.90 CROHN'S DISEASE, UNSPECIFIED, WITHOUT CO 10/01/2017 GABRIEL AVALOS, TUBA Ot 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 10/01/2017 GABRIEL AVALOS, TUBA Ot E46 UNSPECIFIED PROTEIN-CALORIE MALNUTRITION 10/01/2017 GABRIEL AVALOS, TUBA Ot K50.90 CROHN'S DISEASE, UNSPECIFIED, WITHOUT CO 10/01/2017 GABRIEL AVALOS TUBA Ot Z79.899 OTHER ASSISTED (CURRENT) DRUG THERAPY 10/01/2017 GABRIEL AVALOS, TUBA Ot E46 UNSPECIFIED PROTEIN-CALORIE MALNUTRITION 10/01/2017 GABIREL AVALOS, TUBA Ot K50.90 CROHN'S DISEASE, UNSPECIFIED, WITHOUT CO 10/01/2017 GABRIEL AVALOS, TUBA Ot 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 10/01/2017 GABRIEL AVALOS, TUBA Ot E46 UNSPECIFIED PROTEIN-CALORIE MALNUTRITION 10/01/2017 GABRIEL AVALOS, TUBA Ot K50.90 CROHN'S DISEASE, UNSPECIFIED, WITHOUT CO 10/01/2017 GABRIEL AVALOS, TUBA Ot Z79.899 OTHER ASSISTED (CURRENT) DRUG THERAPY 10/01/2017 GABRIEL AVALOS, TUBA Ot E46 UNSPECIFIED PROTEIN-CALORIE MALNUTRITION 10/01/2017 GABRIEL AVALOS, TUBA Ot K50.90 CROHN'S DISEASE, UNSPECIFIED, WITHOUT CO 10/01/2017 GABRIEL AVALOS, TUBA Ot 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 10/01/2017 GABRIEL AVALOS, TUBA Ot E46 UNSPECIFIED PROTEIN-CALORIE MALNUTRITION 10/01/2017 GABRIEL AVALOS, TUBA Ot K50.90 CROHN'S DISEASE, UNSPECIFIED, WITHOUT CO 10/01/2017 GABRIEL AVALOS, TUBA Ot Z79.899 OTHER ASSISTED (CURRENT) DRUG THERAPY 10/01/2017 GABRIEL AVALOS TUBA Ot E46 UNSPECIFIED PROTEIN-CALORIE MALNUTRITION 10/01/2017 GABRIEL AVALOS TUBA Ot K50.90 CROHN'S DISEASE, UNSPECIFIED, WITHOUT CO 10/01/2017 GABRIEL AVALOS, TUBA Ot Z79.899 OTHER ASSISTED (CURRENT) DRUG THERAPY 10/01/2017 GABRIEL AVALOS, TUBA Ot E46 UNSPECIFIED PROTEIN-CALORIE MALNUTRITION 10/01/2017 GABRIEL AVALOS, TUBA Ot K50.90 CROHN'S DISEASE, UNSPECIFIED, WITHOUT CO 10/01/2017 GABRIEL AVALOS, TUBA Ot 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 10/01/2017 GABRIEL AVALOS TUBA Ot E46 UNSPECIFIED PROTEIN-CALORIE MALNUTRITION 10/01/2017 GABRIEL AVALOS, TUBA Ot K50.90 CROHN'S DISEASE, UNSPECIFIED, WITHOUT CO 10/01/2017 GABRIEL AVALOS, TUBA Ot 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 10/01/2017 GABRIEL AVALOS TUBA Ot E46 UNSPECIFIED PROTEIN-CALORIE MALNUTRITION 10/01/2017 GABRIEL AVALOS, TUBA Ot K50.90 CROHN'S DISEASE, UNSPECIFIED, WITHOUT CO 10/01/2017 GABRIEL AVALOS TUBA Ot Z79.899 OTHER ASSISTED (CURRENT) DRUG THERAPY 10/01/2017 GABRIEL AVALOS, TUBA Ot E46 UNSPECIFIED PROTEIN-CALORIE MALNUTRITION 10/01/2017 GABRIEL AVALOS, TUBA Ot K50.90 CROHN'S DISEASE, UNSPECIFIED, WITHOUT CO 10/01/2017 GABRIEL AVALOS, TUBA Ot Z79.899 OTHER ASSISTED (CURRENT) DRUG THERAPY 10/01/2017 GABRIEL AVALOS, TUBA Ot E46 UNSPECIFIED PROTEIN-CALORIE MALNUTRITION 10/01/2017 GABRIEL AVALOS, TUBA Ot K50.90 CROHN'S DISEASE, UNSPECIFIED, WITHOUT CO 10/01/2017 GABRIEL AVALOS, TUBA Ot 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 10/01/2017 GABRIEL AVALOS TUBA Ot E46 UNSPECIFIED PROTEIN-CALORIE MALNUTRITION 10/01/2017 GABRIEL AVALOS, TUBA Ot K50.90 CROHN'S DISEASE, UNSPECIFIED, WITHOUT CO 10/01/2017 GABRIEL AVALOS TUBA Ot 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 10/01/2017 GABRIEL AVALOS TUBA Ot E46 UNSPECIFIED PROTEIN-CALORIE MALNUTRITION 10/01/2017 GABRIEL AVALOS, TUBA Ot K50.90 CROHN'S DISEASE, UNSPECIFIED, WITHOUT CO 10/01/2017 GABRIEL AVALOS TUBA Ot 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 10/01/2017 GABRIEL AVALOS, TUBA Ot E46 UNSPECIFIED PROTEIN-CALORIE MALNUTRITION 10/01/2017 GABRIEL AVALOS TUBA Ot K50.90 CROHN'S DISEASE, UNSPECIFIED, WITHOUT CO 10/01/2017 GABRIEL AVALOS TUBA Ot Z79.899 OTHER ASSISTED (CURRENT) DRUG THERAPY 10/03/2017 LUDIN AVALOS, IESHA Mckeon Ot R53.81 OTHER MALAISE 10/03/2017 IESHA NOLAND MD Ot R53.83 OTHER FATIGUE Procedures Code Description Performed By Performed On [id number] REMOVAL OF INFUSION DEVICE FROM [facility] 03/02/2015 Results Test Result Range Complete blood count (CBC) with automated white blood cell (WBC) differential - 10/01/17 15:05 Blood leukocytes automated count (number/volume) 7.0 10*3/uL 4.3-11.0 Blood erythrocytes automated count (number/volume) 4.63 10*6/uL 4.35-5.85 Venous blood hemoglobin measurement (mass/volume) 13.4 g/dL 11.5-16.0 Blood hematocrit (volume fraction) 41 % 35-52 Automated erythrocyte mean corpuscular volume 89 [foz_us] 80-99 Automated erythrocyte mean corpuscular hemoglobin (mass per erythrocyte) 29 pg 25-34 Automated erythrocyte mean corpuscular hemoglobin concentration measurement ( mass/volume) 32 g/dL 32-36 Automated erythrocyte distribution width ratio 13.6 % 10.0-14.5 Automated blood platelet count (count/volume) 207 10*3/uL 130-400 Automated blood platelet mean volume measurement 11.1 [foz_us] 7.4-10.4 Automated blood neutrophils/100 leukocytes 60 % 42-75 Automated blood lymphocytes/100 leukocytes 23 % 12-44 Blood monocytes/100 leukocytes 10 % 0-12 Automated blood eosinophils/100 leukocytes 6 % 0-10 Automated blood basophils/100 leukocytes 1 % 0-10 Blood neutrophils automated count (number/volume) 4.2 10*3 1.8-7.8 Blood lymphocytes automated count (number/volume) 1.6 10*3 1.0-4.0 Blood monocytes automated count (number/volume) 0.7 10*3 0.0-1.0 Automated eosinophil count 0.4 10*3/uL 0.0-0.3 Automated blood basophil count (count/volume) 0.0 10*3/uL 0.0-0.1 Comprehensive metabolic panel - 10/01/17 15:05 Serum or plasma sodium measurement (moles/volume) 137 mmol/L 135-145 Serum or plasma potassium measurement (moles/volume) 4.1 mmol/L 3.6-5.0 Serum or plasma chloride measurement (moles/volume) 103 mmol/L 98-107 Carbon dioxide 24 mmol/L 21-32 Serum or plasma anion gap determination (moles/volume) 10 mmol/L 5-14 Serum or plasma urea nitrogen measurement (mass/volume) 15 mg/dL 7-18 Serum or plasma creatinine measurement (mass/volume) 0.92 mg/dL 0.60-1.30 Serum or plasma urea nitrogen/creatinine mass ratio 16 NRG Serum or plasma creatinine measurement with calculation of estimated glomerular filtration rate > NRG Serum or plasma glucose measurement (mass/volume) 95 mg/dL 70-105 Serum or plasma calcium measurement (mass/volume) 9.1 mg/dL 8.5-10.1 Serum or plasma total bilirubin measurement (mass/volume) 0.4 mg/dL 0.1-1.0 Serum or plasma alkaline phosphatase measurement (enzymatic activity/volume) 78 U/L 40-136 Serum or plasma aspartate aminotransferase measurement (enzymatic activity/ volume) 18 U/L 5-34 Serum or plasma alanine aminotransferase measurement (enzymatic activity/volume ) 10 U/L 0-55 Serum or plasma protein measurement (mass/volume) 7.4 g/dL 6.4-8.2 Serum or plasma albumin measurement (mass/volume) 4.4 g/dL 3.2-4.5 THYROID STIMULATING HORMONE - 10/01/17 15:05 THYROID STIMULATING HORMONE 0.25 u[iU]/mL 0.35-4.94 Encounters ACCT No. Visit Date/Time Discharge Status Pt. Type Provider Facility Loc./Unit Complaint [id number] 10/01/2017 14:45:00 10/01/2017 23:59:59 [facility] Outpatient IESHA NOLAND MD [facility] LAB MALAISE AND FATIGUE [id number] 08/31/2015 14:40:00 08/31/2015 23:59:59 CLS Outpatient ALVERTO RIOS MD [facility] CROHN'S DISEASE,TPN THERAPY,MALNUTRITION [id number] 08/24/2015 16:43:00 08/24/2015 23:59:59 CLS Outpatient ALVERTO RIOS MD [facility] CROHNS DISEASE,TPN THERAPY , MALNUTRITION [id number] 08/17/2015 16:28:00 08/17/2015 23:59:59 CLS Outpatient ALVERTO RIOS MD [facility] CROHN'S DISEASE, MALNUTRITION, TPN THERAPY [id number] 08/10/2015 14:38:00 08/10/2015 23:59:59 CLS Outpatient ALVERTO RIOS MD [facility] CROHN'S DISEASE, MALNUTRITION, TPN THERAPY [id number] 08/03/2015 12:42:00 08/03/2015 23:59:59 CLS Outpatient DESTINY RIOS MDA [facility] CROHNS DISEASE, MALNUTRITION,TPN THERAPY [id number] 07/27/2015 13:00:00 07/27/2015 23:59:59 CLS Outpatient GABRIEL AVALOS TUBA Via [facility] CROHNS DISEASE, MALNURTITION, TPN THERAPY [id number] 07/21/2015 13:30:00 07/21/2015 23:59:59 CLS Outpatient GABRIEL AVALOS TUBA Via [facility] CROHN'S DISEASE, MALNUTRITION,TPN THERAPY [id number] 07/13/2015 14:00:00 07/13/2015 23:59:59 CLS Outpatient GABRIEL AVALOS TUBCasey [facility] MALNUTRITION,CROHNS [id number] 07/06/2015 13:20:00 07/06/2015 23:59:59 CLS Outpatient GABRIEL AVALOS TUBA Via [facility] CROHNS, TPN THERAPY [id number] 06/29/2015 13:07:00 06/29/2015 23:59:59 CLS Outpatient GABRIEL AVALOS TUBA Via [facility] CROHN'S DISEASE, MALNUTRITION, TPN THERAPY [id number] 06/22/2015 12:59:00 06/22/2015 23:59:59 CLS Outpatient GABRIEL AVALOS TUBA Via [facility] CROHNS, TPN THERPAY, MALNUTRITION [id number] 06/15/2015 13:00:00 06/15/2015 23:59:59 CLS Outpatient GABRIEL AVALOS TUBA [facility] CROHNS, MALNUTRITION, TPN THERAPY [id number] 06/08/2015 13:50:00 06/08/2015 23:59:59 CLS Outpatient GABRIEL AVALOS TUBA Via [facility] CROHN'S DISEASE,TPN THERAPY, MALNUTRITION [id number] 06/01/2015 14:49:00 06/01/2015 23:59:59 CLS Outpatient GABRIEL AVALOS TUBA Via [facility] CROHNS,MALNUTRITION,TPN THERAPY,DIARRHEA [id number] 05/25/2015 14:43:00 05/25/2015 23:59:59 CLS Outpatient GABRIEL AVALOS TUBA [facility] CROHNS DISEASE, MALNUTRITION,TPN THERAPY [id number] 05/19/2015 13:00:00 05/19/2015 15:29:00 DIS Emergency JULIO C RALPH ALARM SIGNALER Via [facility] CHEST PORT/CANT LIFT ARM [id number] 05/18/2015 11:57:00 05/18/2015 23:59:59 CLS Outpatient GABRIEL AVALOS TUBA Via [facility] CROHNS DISEASE, MALNUTRITION,TPN THERAPY [id number] 05/11/2015 15:26:00 05/11/2015 23:59:59 CLS Outpatient GABRIEL AVALOS TUBA [facility] [id number] 05/04/2015 13:48:00 05/04/2015 23:59:59 CLS Outpatient GABRIEL AVALOS TUBA [facility] CROHNS, MALNUTRITION, TPN THERAPY [id number] 04/27/2015 14:00:00 04/27/2015 23:59:59 CLS Outpatient GABRIEL AVALOS TUBA Via [facility] MALNUTRITION,CROHN'S DISEASE,TPN THERAPY [id number] 04/19/2015 14:06:00 04/19/2015 23:59:59 CLS Outpatient GABRIEL AVALOS TUBA Via [facility] CROHN'S,MALNUTRITION,TPN THERAPY [id number] 04/13/2015 14:24:00 04/13/2015 23:59:59 CLS Outpatient GABRIEL AVALOS TUBA [facility] CROHN'S, MALNUTRITION, TPN THERAPY [id number] 04/06/2015 14:30:00 04/06/2015 23:59:59 CLS Outpatient GABRIEL AVALOS TUBA [facility] CROHNS,MALNUTRITION,TPN THERAPY [id number] 03/30/2015 15:19:00 03/30/2015 23:59:59 CLS Outpatient GABRIEL AVALOS TUBA [facility] CROHNS, TPN THERAPY, MALNUTRITION [id number] 03/23/2015 15:06:00 03/23/2015 23:59:59 CLS Outpatient GABRIEL AVALOS TUBCasey [facility] CROHNS, MALNUTRITION, TPN THERAPY [id number] 03/15/2015 15:09:00 03/15/2015 23:59:59 CLS Outpatient IESHA NOLAND MD [facility] MALNUTRITION,CROHNS, TPN THERAPY [id number] 03/11/2015 11:34:00 03/11/2015 18:05:00 DIS Outpatient MAURICIO JOHNSON MD [facility] SHORT GUT SYNDROME [id number] 03/09/2015 13:53:00 03/09/2015 23:59:59 CLS Outpatient ALVERTO RIOS MD [facility] MALNUTRITION, CROHNS, TPN THERAPY [id number] 03/09/2015 05:46:00 03/09/2015 23:59:59 CLS Outpatient MAURICIO JOHNSON MD Via [facility] PREOP SHORT GUT SYNDROME [id number] 02/28/2015 17:38:00 03/03/2015 10:25:00 DIS Inpatient IESHA NOLAND MD Via [address] BACTERIA WITH LIKELY CENTRAL LINE INFECTION [id number] 02/23/2015 13:33:00 02/23/2015 23:59:59 CLS Outpatient GABRIEL AVALOS TUBCasey [facility] DYSURIA,FEVER, FISTULA [id number] 02/23/2015 13:14:00 02/23/2015 23:59:59 CLS Outpatient GABRIEL AVALOS TUBCasey [facility] CROHNS,MALNUTRITION,TPN THERAPY,DYSUREA,FEVER [id number] 02/16/2015 12:15:00 02/16/2015 23:59:59 CLS Outpatient GABRIEL AVALOS TUBCasey [facility] MALNUTRIATION,TPN THERAPY, CROHN'S DI,IMURAN/HUMIRA [id number] 02/09/2015 12:30:00 02/09/2015 23:59:59 CLS Outpatient GABRIEL AVALOS TUBCasey [facility] MALNUTRITION, TPN THERAPY , CROHNS DISEASE [id number] 02/02/2015 12:30:00 02/02/2015 23:59:59 CLS Outpatient GABRIEL AVALOS TUBCasey [facility] CROHNS DISEASE, MALNUTRITION,TPN THERAPY [id number] 01/25/2015 12:28:00 01/25/2015 23:59:59 CLS Outpatient GABRIEL AVALOS TUBCasey [facility] CROHNS DISEASE,TPN THERAPY ,MALNUTRITION [id number] 01/19/2015 15:07:00 01/19/2015 23:59:59 CLS Outpatient GABRIEL AVALOS TUBCasey [facility] CROHNS DISEASE,TPN THERAPY ,MALNUTRITION [id number] 01/12/2015 12:00:00 01/12/2015 23:59:59 [facility] Outpatient GABRIEL AVALOS TUBCasey Via [facility] CROHNS DISEASE, MALNUTRITION,TPN THERAPY [id number] 01/05/2015 11:17:00 01/05/2015 23:59:59 [facility] Outpatient GABRIEL AVALOS TUBCasey [facility] MALNUTRITION,CROHNS DISEASE,TPN THERAPY [id number] 12/29/2014 11:30:00 12/29/2014 23:59:59 CLS Outpatient GABRIEL AVALOS TUBCasey [facility] MALNUTRITION,CROHNS DISEASE, TPN THERAPY [id number] 12/22/2014 11:30:00 12/22/2014 23:59:59 CLS Outpatient GABRIEL AVALOS TUBCasey [facility] MALNUTRITION, TPN THERAPY [id number] 12/15/2014 11:30:00 12/15/2014 23:59:59 CLS Outpatient GABRIEL AVALOS TUBCasey [facility] MALNUTRATION,TPN THERAPY [id number] 12/08/2014 12:50:00 12/08/2014 23:59:59 CLS Outpatient GABRIEL AVALOS TUBCasey [facility] MALNUTRITION, TPN,CROHN'S DISEASE [id number] 12/01/2014 13:15:00 12/01/2014 23:59:59 CLS Outpatient GABRIEL AVALOS, TUBA [facility] CROHNS DISEASE, MALNUTRITION,TPN THERAPY [id number] 11/24/2014 13:00:00 11/24/2014 23:59:59 CLS Outpatient GABRIEL AVALOS, TUBA [facility] MALNUTRITION, CHOHNS,TPN THERAPY [id number] 11/17/2014 13:00:00 11/17/2014 23:59:59 CLS Outpatient GABRIEL AVALOS TUBA Via [facility] MALNUTRITION, CHOHNS,TPN THERAPY [id number] 11/10/2014 11:30:00 11/10/2014 23:59:59 CLS Outpatient GABRIEL AVALOS TUBCasey Via [facility] CROHNS DISEASE, MALNUTRITION,TPN THERAPY [id number] 11/02/2014 11:30:00 11/02/2014 23:59:59 CLS Outpatient GABRIEL AVALOS TUBCasey [facility] CROHNS DISEASE, MALNUTRITION,TPN [id number] 10/26/2014 12:50:00 10/26/2014 23:59:59 CLS Outpatient GABRIEL AVALOS [facility] MALNUTRITION, CROHNS, TPN THERAPY [id number] 10/20/2014 14:00:00 10/20/2014 23:59:59 CLS Outpatient GABRIEL AVALOS [facility] CROHNS DISEASE, MALUNTRITION, TPB THERAPY [id number] 10/13/2014 11:30:00 10/13/2014 23:59:59 CLS Outpatient GABRIEL AVALOS [facility] MALNUTRITION, CHROHNS, TPN THERAPY [id number] 10/06/2014 10:40:00 10/06/2014 23:59:59 CLS Outpatient GABRIEL AVALOS [facility] MALNUTRITION, CROHNS,TPN THERAPY [id number] 09/28/2014 10:50:00 09/28/2014 23:59:59 CLS Outpatient GABRIEL AVALOS [facility] MALNUTRITION, TPN,IMURAN AND HUMIRA THERAPY [id number] 09/22/2014 10:50:00 09/22/2014 23:59:59 CLS Outpatient GABRIEL AVALOS [facility] MALNUTRITION, CROHNS DISEASE, TPN THERAPY [id number] 09/15/2014 00:12:00 09/15/2014 23:59:59 CLS Preadmit GABRIEL AVALOS [facility] MALNUTRITION, TPN THERAPY, LOOSE STOOLS, CROHNS [id number] 09/14/2014 14:45:00 09/14/2014 23:59:59 CLS Outpatient ALVERTO RIOS MD [facility] MALNUTRITION,TPN THERAPY, CROHN'S DI,IMURAN/HUMIRA [id number] 06/24/2014 10:58:00 09/14/2014 00:01:00 [facility] Outpatient GABRIEL AVALOS [facility] MALNUTRITION, TPN THERAPY, LOOSE STOOLS, CROHNS [id number] 09/08/2014 13:00:00 09/08/2014 23:59:59 CLS Outpatient GABRIEL AVALOS [facility] MALNUTRITION, CROHNS DISEASE, TPN THERAPY [id number] 09/01/2014 14:11:00 09/01/2014 23:59:59 CLS Outpatient GABRIEL AVALOS [facility] MALNUTRITION,TPN THERAPY, CROHNS DISEASE [id number] 08/04/2014 10:30:00 08/04/2014 23:59:59 CLS Outpatient GABRIEL AVALOS [facility] MALNUTRITION, TPN THERAPY, IMURAN HUMIRA THERAPY [id number] 07/28/2014 13:00:00 07/28/2014 23:59:59 CLS Outpatient GABRIEL AVALOS [facility] MALNUTRITION,TPN THERAPY [id number] 07/21/2014 14:00:00 07/21/2014 23:59:59 CLS Outpatient GABRIEL AVALOS [facility] MALNUTRITION,TPN THERAPY, IMURAN + HUMIR[place] [id number] 07/14/2014 09:40:00 07/14/2014 23:59:59 CLS Outpatient GABRIEL AVALOS, [facility] MALNUTRITION,TPN THERAPY, CROHNS DISEASE [id number] 07/07/2014 10:00:00 07/07/2014 23:59:59 CLS Outpatient ALVERTO RIOS MD [facility] MALNUTRITION,TPN/IMURAN/ HUMIRA THERAPY,CROHN'S DI [id number] 06/30/2014 13:30:00 06/30/2014 23:59:59 CLS Outpatient GABRIEL AVALOS, ALVERTO [facility] CROHNS,MALNUTRITION,TPN THERAPY,IMURAN HUMIR[place] [id number] 06/23/2014 10:30:00 06/23/2014 23:59:59 CLS Outpatient ALVERTO RIOS MD [facility] MALNUTRITION, TPN THERAPY [id number] 06/09/2014 14:00:00 Document Registration [id number] 06/03/2014 14:30:00 Document Registration
[2018-04-18] MEDS ORDERED: NS IV 1000 ML 1,000 ML IV SCH (12:45)
[2018-04-18] MEDS ORDERED: fentaNYL INJECTION 100 MCG/2 ML AMP IVP ONE (12:45)
[2018-04-18] MEDS ORDERED: PROMETHAZINE INJ 25 MG/ML (PHENERGAN) AMP IVP ONE (12:45)
[2018-04-18 12:46] LABS: BASOPHILS % (AUTO) 0 % (0-10); EOSINOPHILS % (AUTO) 0 % (0-10); HEMATOCRIT 41 % (35-52); HEMOGLOBIN 13.3 G/DL (11.5-16.0); LYMPHOCYTES # (AUTO) 0.7 X 10^3 (1.0-4.0); LYMPHOCYTES % (AUTO) 5 % (12-44); MEAN CORPUSCULAR HEMOGLOBIN 27 PG (25-34); MEAN CORPUSCULAR HGB CONC 32 G/DL (32-36); MEAN CORPUSCULAR VOLUME 85 FL (80-99); MONOCYTES # (AUTO) 0.7 X 10^3 (0.0-1.0); MONOCYTES % (AUTO) 5 % (0-12); NEUTROPHILS # (AUTO) 12.7 X 10^3 (1.8-7.8); NEUTROPHILS % (AUTO) 90 % (42-75); PLATELET COUNT 337 10^3/uL (130-400); RED BLOOD COUNT 4.89 10^6/uL (4.35-5.85); RED CELL DISTRIBUTION WIDTH 14.2 % (10.0-14.5); WHITE BLOOD COUNT 14.1 10^3/uL (4.3-11.0)
[2018-04-18 13:06] LABS: BILIRUBIN,URINE NEGATIVE (NEGATIVE); CLARITY,URINE CLEAR; COLOR,URINE YELLOW; GLUCOSE, URINE (UA) NEGATIVE (NEGATIVE); KETONES,URINE NEGATIVE (NEGATIVE); LEUKOCYTE ESTERASE ,URINE 1+ (NEGATIVE); NITRITE,URINE NEGATIVE (NEGATIVE); PH,URINE 6 (5-9); PROTEIN,URINE NEGATIVE (NEGATIVE); UROBILINOGEN,URINE NORMAL (NORMAL)
[2018-04-18 13:06] LABS: ALANINE AMINOTRANSFERASE 36 U/L (0-55); ALBUMIN 4.6 GM/DL (3.2-4.5); ALKALINE PHOSPHATASE 349 U/L (40-136); AMYLASE 64 U/L (25-125); BILIRUBIN,TOTAL 0.6 MG/DL (0.1-1.0); BUN/CREATININE RATIO 10; CALCIUM 10.1 MG/DL (8.5-10.1); CARBON DIOXIDE 26 MMOL/L (21-32); CHLORIDE 102 MMOL/L (98-107); CREATININE SERUM 0.89 MG/DL (0.60-1.30); GFR ESTIMATED > 60; GLUCOSE 132 MG/DL (70-105); LIPASE 7 U/L (8-78); POTASSIUM 3.4 MMOL/L (3.6-5.0); SODIUM 142 MMOL/L (135-145); TOTAL PROTEIN 8.6 GM/DL (6.4-8.2)
[2018-04-18 13:17] LABS: BAND NEUTROPHILS 0 %; BASOPHILS % (MANUAL) 0 %; EOSINOPHILS % (MANUAL) 0 %; LYMPHOCYTES % (MANUAL) 1 %; MONOCYTES % (MANUAL) 6 %; NEUTROPHILS % (MANUAL) 93 %; RBC MORPH NORMAL
[2018-04-18 13:20] LABS: BACTERIA,URINE NEGATIVE /HPF; SQUAMOUS EPITHELIAL CELL,UR 0-2 /HPF; WBC,URINE RARE /HPF
--- NOTE | 2018-04-18 13:28 | NUR ---
Pt's pain and nausea relieved at this time. Will continue to monitor.
--- NOTE | 2018-04-18 13:34 | ED Abdominal Pain ---
General Chief Complaint: -Female Stated Complaint: CROHN'S FLARE UP/VOMITING/ABD PAIN Nursing Triage Note: Ambulatory to rm 9. Pt c/o severe RU&LQ pain and nausea and vomiting that began this AM. Pt sent to ED from Dr. Noland's office. Pt has hx of Crohn's. Sepsis Screen: No Definite Risk Source of Information: Patient Exam Limitations: No Limitations History of Present Illness Date Seen by Provider: Apr 18, 2018 Time Seen by Provider: 12:35 Initial Comments 48-year-old female who was sent to the emergency room by Dr. Noland's office for complaints of a Crohn's flareup. He called to give a heads up that the patient was coming and he reported that they could not get her pain or nausea under control with IM Phenergan and Toradol. The patient reports that she's had pain, nausea and vomiting that started this morning around 5 AM. She reports that she has pain medication and nausea medication at home but was unable to get them taken due to the nausea and vomiting. Timing/Duration: 4-6 Hours Severity/Quality: Cramping, Sharp Location: Generalized Abdomen Radiation: No Radiation Associated Symptoms: Nausea/Vomiting Allergies and Home Medications Allergies Coded Allergies: No Known Drug Allergies (Unverified , 02/28/15) Home Medications Adalimumab 40 Mg/0.8 Ml Pen.ij.kit, 40 MG SQ EVERY 2 WEEKS, (Reported) Azathioprine 50 Mg Tablet, 50 MG PO BID, (Reported) Diazepam 10 Mg Tablet, 10 MG PO BID, (Reported) Ergocalciferol (Vitamin D2) 50,000 Unit Capsule, 50,000 UNIT PO EVERY OTHER TUES , (Reported) Heparin Sod,Porcine-0.9 % NaCl 10 Unit/1 Ml Kit, 10 UNIT IV BID, (Reported) Hyoscyamine Sulfate 0.125 Mg Tab.rapdis, 0.125 MG PO Q4H PRN for BLADDER SPASMS, (Reported) Methadone HCl 10 Mg Tablet, 25 MG PO BID, (Reported) TAKES 2 & 1/2 (10MG) TABLETS Oxycodone HCl 5 Mg/5 Ml Solution, 40 MG PO BID, (Reported) TAKES 2 TEASPOONS OF 5MG/5ML TWICE DAILY Oxycodone HCl/Acetaminophen 1 Each Tablet, 1 EACH PO Q4H PRN for PAIN Prescribed by: MAURICIO JOHNSON on 03/11/15 1704 Pantoprazole Sodium 40 Mg Tablet.dr, 40 MG PO DAILY, (Reported) Promethazine HCl 25 Mg Tablet, 25 MG PO Q6H PRN for NAUSEA/VOMITING, (Reported) Sodium/K+/Mag/Ca/Chlor/Acetate 20 Ml Vial, 20 ML IV UD, (Reported) [flexeril] , 5 MG PO TID PRN for PAIN Prescribed by: JULIO C RALPH on 05/19/15 1502 Patient Home Medication List Home Medication List Reviewed: Yes Review of Systems Review of Systems Constitutional: no symptoms reported, see HPI Gastrointestinal: See HPI, Abdominal Pain, Nausea, Vomiting All Other Systems Reviewed Negative Unless Noted: Yes Past Tkdhwah-Otnbtt-Omjtgd Hx Past Med/Social Hx: Reviewed Nursing Past Med/Soc Hx Patient Social History Alcohol Use: Denies Use Recreational Drug Use: No Smoking Status: Current Everyday Smoker Type Used: Cigarettes 2nd Hand Smoke Exposure: Yes Recent Foreign Travel: No Contact w/Someone Who Travel: No Recent Infectious Disease Expo: No Recent Hopitalizations: No Physical Abuse: No Sexual Abuse: No Immunizations Up To Date Tetanus Booster (TDap): Less than 5yrs Date of Influenza Vaccine: Feb 07, 2015 Past Medical History Surgeries: Yes (bowel resections X3, PORT PLACEMENT) Abdominal, Adenoidectomy, Appendectomy, Tonsillectomy, Tubal Ligation Respiratory: No Cardiac: No Neurological: No Reproductive Disorders: No Female Reproductive Disorders: Denies Sexually Transmitted Disease: No HIV/AIDS: No Gastrointestinal: Yes Crohns Disease Musculoskeletal: No Endocrine: No Loss of Vision: Denies Cancer: No Psychosocial: Yes Anxiety Integumentary: No Blood Disorders: No Adverse Reaction/Blood Tranf: No Family Medical History Reviewed Nursing Family Hx Diabetes mellitus 19 MOTHER Hypertension 19 FATHER Myocardial infarction 19 FATHER Physical Exam Vital Signs Vital Signs - First Documented 04/18/18 12:32 Temp 98.1 Pulse 78 Resp 14 B/P (MAP) 146/84 (104) Pulse Ox 95 O2 Delivery Room Air Capillary Refill : Less Than 3 Seconds Height/Weight/BMI Height: 5'3.00" Weight: 95lbs. 0.0oz. [id number]; 18.36 BMI Method:Stated General Appearance: WD/WN, no apparent distress Respiratory: chest non-tender, lungs clear, normal breath sounds, no respiratory distress, no accessory muscle use Cardiovascular: normal peripheral pulses, regular rate, rhythm, no edema, no gallop, no JVD, no murmur Gastrointestinal: normal bowel sounds, non tender, soft, no organomegaly, no pulsatile mass Neurologic/Psychiatric: alert, normal mood/affect, oriented x 3 Skin: normal color, warm/dry Progress/Results/Core Measures Results/Orders Lab Results Laboratory Tests Test 04/18/18 12:40 04/18/18 12:55 Range/Units White Blood Count 14.1 H 4.3-11.0 10^3/uL Red Blood Count 4.89 4.35-5.85 10^6/uL Hemoglobin 13.3 11.5-16.0 G/DL Hematocrit 41 35-52 % Mean Corpuscular Volume 85 80-99 FL Mean Corpuscular Hemoglobin 27 25-34 PG Mean Corpuscular Hemoglobin Concent 32 32-36 G/DL Red Cell Distribution Width 14.2 10.0-14.5 % Platelet Count 337 130-400 10^3/uL Mean Platelet Volume 11.0 H 7.4-10.4 FL Neutrophils (%) (Auto) 90 H 42-75 % Lymphocytes (%) (Auto) 5 L 12-44 % Monocytes (%) (Auto) 5 0-12 % Eosinophils (%) (Auto) 0 0-10 % Basophils (%) (Auto) 0 0-10 % Neutrophils # (Auto) 12.7 H 1.8-7.8 X 10^3 Lymphocytes # (Auto) 0.7 L 1.0-4.0 X 10^3 Monocytes # (Auto) 0.7 0.0-1.0 X 10^3 Eosinophils # (Auto) 0.0 0.0-0.3 10^3/uL Basophils # (Auto) 0.0 0.0-0.1 10^3/uL Neutrophils % (Manual) 93 % Lymphocytes % (Manual) 1 % Monocytes % (Manual) 6 % Eosinophils % (Manual) 0 % Basophils % (Manual) 0 % Band Neutrophils 0 % Blood Morphology Comment NORMAL Sodium Level 142 135-145 MMOL/L Potassium Level 3.4 L 3.6-5.0 MMOL/L Chloride Level 102 98-107 MMOL/L Carbon Dioxide Level 26 21-32 MMOL/L Anion Gap 14 5-14 MMOL/L Blood Urea Nitrogen 9 7-18 MG/DL Creatinine 0.89 0.60-1.30 MG/DL Estimat Glomerular Filtration Rate > 60 BUN/Creatinine Ratio 10 Glucose Level 132 H 70-105 MG/DL Calcium Level 10.1 8.5-10.1 MG/DL Corrected Calcium 8.5-10.1 MG/DL Total Bilirubin 0.6 0.1-1.0 MG/DL Aspartate Amino Transf (AST/SGOT) 24 5-34 U/L Alanine Aminotransferase (ALT/SGPT) 36 0-55 U/L Alkaline Phosphatase 349 H 40-136 U/L Total Protein 8.6 H 6.4-8.2 GM/DL Albumin 4.6 H 3.2-4.5 GM/DL Amylase Level 64 25-125 U/L Lipase 7 L 8-78 U/L Urine Color YELLOW Urine Clarity CLEAR Urine pH 6 5-9 Urine Specific [place] 1.015 L 1.016-1.022 Urine Protein NEGATIVE NEGATIVE Urine Glucose (UA) NEGATIVE NEGATIVE Urine Ketones NEGATIVE NEGATIVE Urine Nitrite NEGATIVE NEGATIVE Urine Bilirubin NEGATIVE NEGATIVE Urine Urobilinogen NORMAL NORMAL MG/DL Urine Leukocyte Esterase 1+ H NEGATIVE Urine RBC (Auto) NEGATIVE NEGATIVE Urine RBC NONE /HPF Urine WBC RARE /HPF Urine Squamous Epithelial Cells 0-2 /HPF Urine Crystals NONE /LPF Urine Bacteria NEGATIVE /HPF Urine Casts NONE /LPF Urine Mucus NEGATIVE /LPF Urine Culture Indicated NO My Orders Orders - ASHER VIVAR Comprehensive Metabolic Panel (04/18/18 12:35) Lipase (04/18/18 12:35) Amylase (04/18/18 12:35) Ua Culture If Indicated (04/18/18 12:35) Saline Lock/Iv-Start (04/18/18 12:35) Cbc With Automated Diff (04/18/18 12:35) Ns Iv 1000 Ml (Sodium Chloride 0.9%) (04/18/18 12:45) Promethazine Injection (Phenergan Injec (04/18/18 12:45) Fentanyl Injection (Sublimaze Injection (04/18/18 12:45) Manual Differential (04/18/18 12:40) Medications Given in ED Vital Signs/I&O 04/18/18 04/18/18 12:32 14:16 Temp 98.1 98.1 Pulse 78 69 Resp 14 14 B/P (MAP) 146/84 (104) 132/80 (97) Pulse Ox 95 96 O2 Delivery Room Air Room Air Blood Pressure Mean: 104 Progress Progress Note : Time: 13:36 Progress Note Patient's pain has resolved at this time. She is no longer nauseated after the medication. She had a [address] Noland had previously prescribed her prednisone in hopes that she will be discharged home so she has not to take. She has nausea and pain medication at home. She agrees with plans of care , plans for discharge, return precautions were given. Departure Impression Primary Impression: Crohn's colitis Disposition: HOME, SELF-CARE Condition: Stable/Unchanged Departure-Patient Inst. Decision time for Depature: 13:39 Referrals: IESHA NOLAND MD (PCP/Family) Primary Care Physician Patient Instructions: Crohn's Disease (DC) Add. Discharge Instructions: Resume your home medications as previously prescribed. Follow-up with Dr. Noland's office within 1 week for recheck. Return back to the emergency room for any worsening symptoms or concerns as needed. All discharge instructions reviewed with patient and/or family. Voiced understanding. ASHER VIVAR Apr 18, 2018 13:34
[2018-04-18 14:16] VITALS: BP 132/80
== END 2018-04-18 14:23 | disposition home or self-care (01) ==
LOC: EDUNIT# 12:19 → ER 12:21
DX: K50.918 Crohn's disease, unspecified, with other complication (principal); K52.9 Noninfective gastroenteritis and colitis, unspecified; F41.9 Anxiety disorder, unspecified; F17.210 Nicotine dependence, cigarettes, uncomplicated; Z90.49 Acquired absence of other specified parts of digestive tract; Z98.890 Other specified postprocedural states; Z98.51 Tubal ligation status; Z82.49 Family history of ischemic heart disease and other diseases of the circulatory system; Z79.01 Long term (current) use of anticoagulants; Z90.89 Acquired absence of other organs
CPT/HCPCS: 36415; 80053; 81000; 82150; 83690; 85007; 85027